=== PATIENT | male | born 1935 | race Caucasian/White ===

== ENCOUNTER 2017-11-08 13:31 | Inpatient (IN) | payer OTHER ==
[2017-11-08] MEDS ORDERED: SODIUM CHLORIDE 1,000 ML IV STA (14:40)
--- NOTE | 2017-11-08 14:49 | PDOC ---
History of Present Illness - General History Source: Patient, Family Exam Limitations: No Limitations <Ramsey Rothman - Last Filed: 11/08/17 17:37> - General History Source: Patient, Family Exam Limitations: No Limitations - History of Present Illness Initial Comments: 11/08/17 15:27 The patient is an 82 year old male with a significant past medical history of hypertension, inguinal hernia, chronic back pain, anxiety, hyperlipidemia, and depression who presents to the emergency for evaluation of a 2 day history of nausea and vomiting. The patient reports persistent episodes of nausea, vomiting , constipation, and lack of appetite. He reports intermittent episodes of abdominal discomfort. Of note, the patient reports being recently diagnosed for a urinary tract infection and finished course of amoxicillin one week ago. The patient denies chest pain, shortness of breath, headache, and dizziness. Denies fevers, chills, diarrhea, and changes to urination. Allergies: NKDA Past surgical history: Inguinal hernia, Cholecystectomy Social history: Former smoker 2002. No reported alcohol or drug use. PCP: Dr. Feldman [phone]) <Ashley Hoang - Last Filed: 11/08/17 18:23> - General Chief Complaint: Nausea/Vomiting Stated Complaint: VOMITING Time Seen by Provider: 11/08/17 13:41 Past History - Past Medical History COPD: No HTN: Yes Hypercholesterolemia: Yes Psychiatric Problems: Yes (DEPRESSION) Other medical history: INGUINAL HERNIA - Surgical History Cholecystectomy: Yes - Suicide/Smoking/Psychosocial Hx Smoking History: Former smoker Have you smoked in the past 12 months: No If you are a former smoker, when did you quit?: 2002 Information on smoking cessation initiated: No Hx Alcohol Use: No Drug/Substance Use Hx: No Substance Use Type: None <Ramsey Rothman - Last Filed: 11/08/17 17:37> <Ashley Hoang - Last Filed: 11/08/17 18:23> - Past Medical History Allergies/Adverse Reactions: Allergies Allergy/AdvReac Type Severity Reaction Status Date / Time No Known Allergies Allergy Unverified 11/08/17 14:37 Home Medications: Ambulatory Orders Amlodipine Besylate [Norvasc -] 10 mg PO DAILY 11/08/17 Aspirin [Aspirin EC] 81 mg PO DAILY 11/08/17 Citalopram Hydrobromide [Celexa -] 20 mg PO DAILY 11/08/17 Labetalol HCl [Normodyne -] 300 mg PO BID 11/08/17 Simvastatin [Zocor -] 40 mg PO DAILY 11/08/17 Review of Systems - Review of Systems Able to Perform ROS?: Yes Comments:: GENERAL/CONSTITUTIONAL: No fever or chills. No weakness. HEAD, EYES, EARS, NOSE AND THROAT: No change in vision. No ear pain or discharge. No sore throat. CARDIOVASCULAR: No chest pain or shortness of breath. RESPIRATORY: No cough, wheezing, or hemoptysis. GASTROINTESTINAL: (+)Nausea. (+)Vomiting. (+)Constipation. GENITOURINARY: No dysuria, frequency, or change in urination. MUSCULOSKELETAL: (+)Abdominal discomfort. No joint or muscle swelling. No neck or back pain. SKIN: No rash NEUROLOGIC: No headache, vertigo, loss of consciousness, or change in strength/ sensation. ENDOCRINE: No increased thirst. No abnormal weight change. HEMATOLOGIC/LYMPHATIC: No anemia, easy bleeding, or history of blood clots. ALLERGIC/IMMUNOLOGIC: No hives or skin allergy. <Ashley Hoang - Last Filed: 11/08/17 18:23> *Physical Exam - Vital Signs Last Vital Signs Temp Pulse Resp BP Pulse Ox 98.6 F 84 20 146/71 96 11/08/17 13:32 11/08/17 13:32 11/08/17 13:32 11/08/17 13:32 11/08/17 13:32 <Ramsey Rothman - Last Filed: 11/08/17 17:37> - Vital Signs Last Vital Signs Temp Pulse Resp BP Pulse Ox 98.6 F 84 20 146/71 11/08/17 13:32 11/08/17 13:32 11/08/17 13:32 11/08/17 13:32 11/08/17 13:32 - Physical Exam Comments: GENERAL: (+)Obese. Awake, alert, and fully oriented, in no acute distress HEAD: No signs of trauma EYES: PERRLA, EOMI, sclera anicteric, conjunctiva clear ENT: Auricles normal inspection, hearing grossly normal, nares patent, Moist mucosa NECK: Normal ROM, supple, no JVD, or masses LUNGS: Breath sounds equal, clear to auscultation bilaterally. No wheezes, and no crackles HEART: Regular rate and rhythm, normal S1 and S2, no murmurs, rubs or gallops ABDOMEN: Soft, nontender. No guarding, no rebound. No masses MUSCULOSKELETAL: (+)Large inguinal hernia on left. No testicular tenderness. EXTREMITIES: Normal range of motion, no edema. No clubbing or cyanosis. No cords, erythema, or tenderness NEUROLOGICAL: Cranial nerves II through XII grossly intact. Normal speech, normal gait SKIN: Warm, Dry, normal turgor, no rashes or lesions noted. <Ashley Hoang - Last Filed: 11/08/17 18:23> ED Treatment Course - LABORATORY CBC & Chemistry Diagram: 11/08/17 14:30 11/08/17 14:30 - RADIOLOGY Radiology Studies Ordered: Category Date Time Status ABDOMEN & PELVIS CT WITH CONTR [CT] Stat CT Scan 11/08/17 14:44 Ordered CHEST X-RAY PORTABLE* [RAD] Stat Radiology 11/08/17 13:56 Taken <Ramsey Rothman - Last Filed: 11/08/17 17:37> - LABORATORY CBC & Chemistry Diagram: 11/08/17 14:30 11/08/17 14:30 - ADDITIONAL ORDERS Additional order review: Laboratory Results 11/08/17 11/08/17 14:30 14:07 Sodium 128 L Potassium 5.2 H Chloride 93 L Carbon Dioxide 23 Anion Gap 12 BUN 33 H Creatinine 1.1 Creat Clearance w eGFR > 60 Random Glucose 142 H Calcium 8.4 Total Bilirubin 0.9 AST 33 ALT 29 Alkaline Phosphatase 129 H Total Protein 6.9 Albumin 3.0 L Urine Color Yellow Urine Appearance Clear Urine pH 5.0 Ur Specific [place] >= 1.030 H Urine Protein Trace Urine Glucose (UA) Negative Urine Ketones 2+ H Urine Blood 1+ H Urine Nitrite Negative Urine Bilirubin 2+ H Urine Urobilinogen 0.2 Ur Leukocyte Esterase Negative 11/08/17 14:30 RBC 4.27 MCV 78.9 L MCHC 32.9 RDW 15.3 MPV 7.8 Neutrophils % No Result Required. Lymphocytes % No Result Required. - Medications Given in the ED: ED Medications Discontinued Medications Generic Name Dose Route Start Last Admin Trade Name Freq PRN Reason Stop Dose Admin Lorazepam 1 mg 11/08/17 14:40 11/08/17 15:18 Ativan Injection - IVPUSH 05/07/18 14:41 1 mg ONCE ONE Administration <Ashley Hoang - Last Filed: 11/08/17 18:23> Medical Decision Making - Medical Decision Making 11/08/17 14:49 A portion of this note was documented by scribe services under my direction. I have reviewed the details of the note, within reason, and agree with the documentation with the following case summary and management plan written by me. Patient treated in the ED. Nursing notes are reviewed and incorporated into the medical decision-making. Vital signs reviewed. Peripheral IV access obtained by the nurse, laboratory studies are drawn and sent, reviewed and interpreted by myself. Vital Signs Temp Pulse Resp BP Pulse Ox 98.6 F 84 20 146/71 96 11/08/17 13:32 11/08/17 13:32 11/08/17 13:32 11/08/17 13:32 11/08/17 13:32 82-year-old male with past medical history of hypertension, hyperlipidemia, anxiety and depression, left inguinal hernia presents with nausea and vomiting. Several weeks ago, the patient was recently diagnosed with a urinary tract infection and was placed on 2 prescriptions including most recently amoxicillin that was completed one week ago. The last several days, the patient has been having persistent nausea and vomiting and decreased appetite. Has had intermittent abdominal discomfort but no diarrhea. The patient does report having constipation and unclear when last bowel movement. However, the patient does take narcotics for his chronic back pain. Patient denies fevers or chills. Denies chest pain or shortness of breath. Differential includes gastroenteritis, constipation, bowel obstruction, hernia, urinary tract infection, acute coronary syndrome. We'll obtain labs, chest x-ray , urinalysis and a CAT scan the abdomen pelvis and reassess. 11/08/17 17:32 CBC, BMP 11/08/17 14:30 11/08/17 14:30 CMP Sodium 128 mmol/L (136-145) L 11/08/17 14:30 Potassium 5.2 mmol/L (3.5-5.1) H 11/08/17 14:30 Chloride 93 mmol/L (98-107) L 11/08/17 14:30 Carbon Dioxide 23 mmol/L (22-28) 11/08/17 14:30 Anion Gap 12 (8-16) 11/08/17 14:30 BUN 33 mg/dl (7-18) H 11/08/17 14:30 Creatinine 1.1 mg/dl (0.6-1.3) 11/08/17 14:30 Creat Clearance w eGFR > 60 (>60) 11/08/17 14:30 Random Glucose 142 mg/dl (74-106) H 11/08/17 14:30 Calcium 8.4 mg/dl (8.4-10.2) 11/08/17 14:30 Total Bilirubin 0.9 mg/dl (0.2-1.0) 11/08/17 14:30 AST 33 U/L (10-42) 11/08/17 14:30 ALT 29 U/L (10-40) 11/08/17 14:30 Alkaline Phosphatase 129 U/L (32-92) H 11/08/17 14:30 Troponin I < 0.03 ng/ml (0.00-0.06) 11/08/17 14:30 Total Protein 6.9 g/dl (6.4-8.3) 11/08/17 14:30 Albumin 3.0 g/dl (3.5-5.0) L 11/08/17 14:30 Lipase 53 U/L (73-393) L 11/08/17 14:30 Urine Test Results Urine Color Yellow 11/08/17 14:07 Urine Appearance Clear 11/08/17 14:07 Urine pH 5.0 (4.5-8) 11/08/17 14:07 Ur Specific [place] >= 1.030 (1.005-1.025) H 11/08/17 14:07 Urine Protein Trace (NEGATIVE) 11/08/17 14:07 Urine Glucose (UA) Negative (NEGATIVE) 11/08/17 14:07 Urine Ketones 2+ (NEGATIVE) H 11/08/17 14:07 Urine Blood 1+ (NEGATIVE) H 11/08/17 14:07 Urine Nitrite Negative (NEGATIVE) 11/08/17 14:07 Urine Bilirubin 2+ (NEGATIVE) H 11/08/17 14:07 Ur Leukocyte Esterase Negative (NEGATIVE) 11/08/17 14:07 Urine RBC 8-10 /hpf (0-3) 11/08/17 14:07 Urine WBC 0-3 (0-2) 11/08/17 14:07 Ur Epithelial Cells Rare /HPF 11/08/17 14:07 Urine Bacteria Rare /hpf (NEGATIVE) 11/08/17 14:07 11/08/17 17:37 CAT scan demonstrates high grade small bowel obstruction with abrupt transition point and a large right inguinal hernia. There is also very large left inguinal hernia. There is also hepatic mass lesions concerning for metastasis. There is also enlarged portacaval and pancreatic lymph nodes concerning for malignancy. Small right pleural effusion. I had given these results to the patient and the patient's . I also instructed him that I am concerned for cancer for this patient. The patient will need a malignancy workup. Given these symptoms and concerns, I had placed the patient for surgeon Dr. Jez De La Paz. Bands were noted to be 11%. Blood cultures and lactic acid was ordered and empiric antibiotics vancomycin and Zosyn were ordered. In the complexity of the patient' s case, decision was made to admit the patient to [facility]. The patient's family is agreeable to the plan. This is discussed with [facility] hospitalist who accepts the patient to medical surgical admission. Case discussed in detail with admitting physician including history, physical exam and ancillary studies. Admitting physician has assumed care for the patient, will follow all pending diagnostics and will complete the evaluation and treatment. <Ramsey Rothman - Last Filed: 11/08/17 17:37> - Medical Decision Making Case discussed with Dr. De La Paz at 18:23. <Ashley Hoang - Last Filed: 11/08/17 18:23> *DC/Admit/Observation/Transfer - Discharge Dispostion Admit: Yes <Ramsey Rothman - Last Filed: 11/08/17 17:37> - Attestations Scribe Attestion: Documentation prepared by Ashley Hoang, acting as medical lead for Ramsey Rohtman MD. <Ashley Hoang - Last Filed: 11/08/17 18:23> Diagnosis at time of Disposition: Liver mass Bowel obstruction Qualifiers: Intestinal obstruction type: unspecified Intestinal obstruction extent: complete Qualified Code(s): K56.601 - Complete intestinal obstruction, unspecified as to cause - Discharge Dispostion Condition at time of disposition: Guarded - Referrals Referrals: Vinicius Feldman MD [Primary Care Provider] - - Patient Instructions - Post Discharge Activity
[2017-11-08 15:06] LABS: URINE APPEARANCE Clear; URINE BILIRUBIN 2+ (NEGATIVE); URINE GLUCOSE (UA) Negative (NEGATIVE); URINE KETONE 2+ (NEGATIVE); URINE LEUK ESTERASE Negative (NEGATIVE); URINE NITRITE Negative (NEGATIVE); URINE PROTEIN Trace (NEGATIVE); URINE UROBILINOGEN 0.2 (0.2-1.0)
[2017-11-08 15:07] LABS: URINE COLOR YELLOW
[2017-11-08 15:08] LABS: HEMATOCRIT 33.7 % (35.4-49); HEMOGLOBIN 11.1 GM/dl (11.7-16.9); MCHC 32.9 g/dl (32.0-35.9); MEAN CELL VOLUME 78.9 fl (80-96); MEAN PLT VOLUME 7.8 fl (7.5-11.1); PLATELET COUNT 359 K/MM3 (134-434); RBC 4.27 M/mm3 (4.00-5.60); RDW 15.3 % (11.9-15.9); WHITE BLOOD COUNT 12.2 K/mm3 (4.0-10.8)
[2017-11-08] MEDS ORDERED: LORazepam 2 MG/ML SDV VIAL ONE (15:14)
[2017-11-08 15:21] LABS: ALK PHOS 129 U/L (32-92); ANION GAP 12 (8-16); BILIRUBIN,TOTAL 0.9 mg/dl (0.2-1.0); BLOOD UREA NITROGEN 33 mg/dl (7-18); CALCIUM 8.4 mg/dl (8.4-10.2); CHLORIDE 93 mmol/L (98-107); CO2 23 mmol/L (22-28); CREATININE 1.1 mg/dl (0.6-1.3); GLUCOSE,RANDOM 142 mg/dl (74-106); POTASSIUM 5.2 mmol/L (3.5-5.1); SGOT/AST 33 U/L (10-42); SGPT/ALT 29 U/L (10-40); SODIUM 128 mmol/L (136-145); TOT PROT 6.9 g/dl (6.4-8.3)
[2017-11-08 15:33] LABS: ACTIVATED PTT 24.2 SECONDS (24.0-38.9)
[2017-11-08 15:37] LABS: INR 1.19 (0.82-1.09); PROTHROMBIN TIME (PATIENT) 13.3 SEC (10.2-13.0)
[2017-11-08 15:38] LABS: EPI CELLS RARE /HPF; URINE BACTERIA RARE /hpf (NEGATIVE); URINE WBC 0-3 (0-2)
[2017-11-08] MEDS ORDERED: morphine CARPU-JECT 4 MG/1 ML DISP.SYRIN IVPUSH ONE (17:04)
[2017-11-08 17:17] LABS: PLATELET ESTIMATE ADEQUATE
[2017-11-08] MEDS ORDERED: morphine SULFATE 4 MG/ML VIAL ONE (17:21)
[2017-11-08] MEDS ORDERED: PIPERACILLIN/TAZOB 3.375 GM 3.375 GM in DEXTROSE 5%-WATER - 50 ML IVPB ONE (17:31)
[2017-11-08] MEDS ORDERED: VANCOMYCIN 1,000 MG in DEXTROSE 5%-WATER - 250 ML IVPB ONE (17:31)
[2017-11-08] MEDS ORDERED: PIPERACILLIN/TAZOBACTAM 3.375 GM VIAL IVPB ONE (18:09)
[2017-11-08] MEDS ORDERED: VANCOMYCIN 1,000 MG VIAL (RESTRICTED TO ID ONLY) ONE (18:09)
--- NOTE | 2017-11-08 20:10 | PN ---
Teaching Attending Note Name of Resident: Francisco Mills ATTENDING PHYSICIAN STATEMENT I saw and evaluated the patient. I reviewed the resident's note and discussed the case with the resident. I agree with the resident's findings and plan as documented. SUBJECTIVE: 82 M ([place]) with pmhx. of htn, inguinal hernia, chronic back pain, anxiety , hld, and depression who presents with nausea and vomiting. States this has been present for two days, but he did note last BM(solid) yesterday and continued to have flatus today. States vomiting has completely subsided, and currently denies any nausea. No fevers or chills. No chest pain or pressure. No urinary frequency or urgency. States he recently had a UTI and finished abx 1 weeks ago (Amoxicilin). States he has had a large inguinal hernia for several years. Denies any pain. OBJECTIVE: Physical: VS: Vital Signs Period Temp Pulse Resp BP Sys/Noble Pulse Ox Last 24 Hr 98.6 F-98.9 F 84-88 20-22 124-146/55-78 93-96 GEN: NAD, Resting in bed, AAOX3 HEENT: NCAT, PERRL, Throat without erythema or exudates CARD: RRR III/ NU S1, S2 RESP: Mild crackles bases ABD: BSx4, Distended, NTD to palpation EXT: Large Left Inguinal hernia non-reducible CBCD WBC 12.2 K/mm3 (4.0-10.8) H 11/08/17 14:30 RBC 4.27 M/mm3 (4.00-5.60) 11/08/17 14:30 Hgb 11.1 GM/dl (11.7-16.9) L 11/08/17 14:30 Hct 33.7 % (35.4-49) L 11/08/17 14:30 MCV 78.9 fl (80-96) L 11/08/17 14:30 MCHC 32.9 g/dl (32.0-35.9) 11/08/17 14:30 RDW 15.3 % (11.9-15.9) 11/08/17 14:30 Plt Count 359 K/MM3 (134-434) 11/08/17 14:30 MPV 7.8 fl (7.5-11.1) 11/08/17 14:30 CMP Sodium 128 mmol/L (136-145) L 11/08/17 14:30 Potassium 5.2 mmol/L (3.5-5.1) H 11/08/17 14:30 Chloride 93 mmol/L (98-107) L 11/08/17 14:30 Carbon Dioxide 23 mmol/L (22-28) 11/08/17 14:30 Anion Gap 12 (8-16) 11/08/17 14:30 BUN 33 mg/dl (7-18) H 11/08/17 14:30 Creatinine 1.1 mg/dl (0.6-1.3) 11/08/17 14:30 Creat Clearance w eGFR > 60 (>60) 11/08/17 14:30 Random Glucose 142 mg/dl (74-106) H 11/08/17 14:30 Calcium 8.4 mg/dl (8.4-10.2) 11/08/17 14:30 Total Bilirubin 0.9 mg/dl (0.2-1.0) 11/08/17 14:30 AST 33 U/L (10-42) 11/08/17 14:30 ALT 29 U/L (10-40) 11/08/17 14:30 Alkaline Phosphatase 129 U/L (32-92) H 11/08/17 14:30 Total Protein 6.9 g/dl (6.4-8.3) 11/08/17 14:30 Albumin 3.0 g/dl (3.5-5.0) L 11/08/17 14:30 CARDIAC ENZYMES Troponin I < 0.03 ng/ml (0.00-0.06) 11/08/17 14:30 CT ABD/PELVIS: High grade SBO, abrupt transition point in Right inguinal hernia , collapsed distal Small Bowel and colon. LARGE LEFT Inguinal Hernia containing nearly entire descending and sigmoid colon, with NO evidence of obstruction. Indet. Multiple hepatic masses ? Mets. MRI/CT Liver. Enlarged Portocaval and peripancreatic lymph nodes, opacity post. lung bases. Enlarged prostate, Home Medications Medication Instructions Recorded Amlodipine Besylate [Norvasc -] 10 mg PO DAILY 11/08/17 Aspirin [Aspirin EC] 81 mg PO DAILY 11/08/17 Citalopram Hydrobromide [Celexa -] 20 mg PO DAILY 11/08/17 Labetalol HCl [Normodyne -] 300 mg PO BID 11/08/17 Oxycodone HCl/Acetaminophen 1 tab PO Q6H 11/08/17 [Percocet 5-325 mg Tablet] Simvastatin [Zocor -] 40 mg PO DAILY 11/08/17 ASSESSMENT AND PLAN: 82 M with pmhx. of htn, inguinal hernia, chronic back pain, anxiety, hld, and depression who presents with nausea and vomiting, found to have SBO and hepatic masses 1.) SBO/Inguinal Hernia - NGT- Refusing at this time as pt. wants to sleep. - NPO - Sx. Consult placed, Spoken with ED - Serial Abd. Exams - Coags, Type & Screen 2.) Hepatic Masses/Lymphadenopathy - Oncology Eval - Needs CT Chest/MRI Liver 3.) Hyponatremia - Serum/Urine OSm - Recheck 4.) Hyperkalemia - Mild - Trend 5.) Microcytic Anemia - Fe Studies 6.) Systolic Ejection Murmur - Echo 7.) DVT - SCDS Place in Med-Sx
[2017-11-08] MEDS ORDERED: ACETAMINOPHEN 325 MG TABLET (FP) PO PRN (21:48)
[2017-11-08] MEDS ORDERED: SODIUM CHLORIDE 1,000 ML IV SCH (22:00)
--- NOTE | 2017-11-08 22:09 | HP ---
CHIEF COMPLAINT: abdominal pain, n/v PCP: Dr. Feldman ([phone]) FAMILY NUMBERS: HOME: [phone] CELL: [phone] (son, Elliott) HISTORY OF PRESENT ILLNESS: 82 year old male with a history of HTN, osteoarthritis, hx of hepatitis, bilateral inguinal hernias and cholecystectomy in 1999 presents to the hospital with 3 day hx of n/v/abdominal pain. Patient states that he was treated for UTI/ hematuria a week ago with amoxicillin. He reports that after he finished taking the course of antibiotic, he began having multiple episodes of non-bloody emesis. Patient's family reports that the vomitus appeared green and bilious at times. He has been unable to take anything by mouth. Patient states that he is passing gas, but his last bowel movement was yesterday and was solid/hard. Patient states that his He denies current abdominal pain, chest pain, shortness of breath, fevers, chills. ER course was notable for: (1) hyponatremia (128) (2) hyperkalemia (5.2) (3) WBC 12.2 PAST MEDICAL HISTORY: HTN. arthritis, hepatitis, b/l inguinal hernias PAST SURGICAL HISTORY: cholecystectomy 1999 Social History: Smoking: none Alcohol: none Drugs: none Allergies No Known Allergies Allergy (Unverified 11/08/17 14:37) HOME MEDICATIONS: Home Medications Medication Instructions Recorded Amlodipine Besylate [Norvasc -] 10 mg PO DAILY 11/08/17 Aspirin [Aspirin EC] 81 mg PO DAILY 11/08/17 Citalopram Hydrobromide [Celexa -] 20 mg PO DAILY 11/08/17 Labetalol HCl [Normodyne -] 300 mg PO BID 11/08/17 Oxycodone HCl/Acetaminophen 1 tab PO Q6H 11/08/17 [Percocet 5-325 mg Tablet] Simvastatin [Zocor -] 40 mg PO DAILY 11/08/17 REVIEW OF SYSTEMS CONSTITUTIONAL: Absent: fever, chills, diaphoresis, generalized weakness, malaise, loss of appetite, weight change HEENT: Absent: rhinorrhea, nasal congestion, throat pain, throat swelling, difficulty swallowing, mouth swelling, ear pain, eye pain, visual changes CARDIOVASCULAR: Absent: chest pain, syncope, palpitations, irregular heart rate, lightheadedness , peripheral edema RESPIRATORY: Absent: cough, shortness of breath, dyspnea with exertion, orthopnea, wheezing, stridor, hemoptysis GASTROINTESTINAL: nausea, vomiting Absent: abdominal pain, abdominal distension, diarrhea, constipation, melena, hematochezia GENITOURINARY: Absent: dysuria, frequency, urgency, hesitancy, hematuria, flank pain, genital pain MUSCULOSKELETAL: Absent: myalgia, arthralgia, joint swelling, back pain, neck pain SKIN: Absent: rash, itching, pallor HEMATOLOGIC/IMMUNOLOGIC: Absent: easy bleeding, easy bruising, lymphadenopathy, frequent infections ENDOCRINE: Absent: unexplained weight gain, unexplained weight loss, heat intolerance, cold intolerance NEUROLOGIC: Absent: headache, focal weakness or paresthesias, dizziness, unsteady gait, seizure, mental status changes, bladder or bowel incontinence PSYCHIATRIC: Absent: anxiety, depression, suicidal or homicidal ideation, hallucinations. PHYSICAL EXAMINATION Vital Signs - 24 hr 11/08/17 11/08/17 11/08/17 13:32 16:15 18:00 Temperature 98.6 F 98.9 F Pulse Rate 84 85 Pulse Rate [ 88 Right Radial] Respiratory 20 22 Rate Blood Pressure 146/71 Blood Pressure 138/78 [Left Arm] O2 Sat by Pulse 96 95 95 Oximetry (%) 11/08/17 11/08/17 11/08/17 18:50 19:00 20:01 Temperature 98.8 F 98.8 F Pulse Rate 85 85 Pulse Rate [ Right Radial] Respiratory 22 22 Rate Blood Pressure 124/55 124/55 Blood Pressure [Left Arm] O2 Sat by Pulse 93 L Oximetry (%) GENERAL: Awake, alert, and fully oriented, in no acute distress. HEENT: PERRLA, EOMI, dry mucus membranes NECK: No JVD LUNGS: CTA, no wheezes HEART: Regular rate and rhythm, normal S1 and S2, harsh systolic murmur appreciated on exam ABDOMEN: Soft, nontender, not distended, normoactive bowel sounds, no guarding, no rebound, no masses. No hepatomegaly or splenomegaly. MUSCULOSKELETAL: Normal range of motion at all joints. No bony deformities or tenderness. No CVA tenderness. EXTREMITIES: 2+ pulses, No peripheral edema. NEUROLOGICAL: Cranial nerves II-XII intact. Normal speech PSYCHIATRIC: Cooperative. Good eye contact. Appropriate mood and affect. SKIN: Warm, dry, normal turgor, no rashes or lesions noted, normal capillary refill. Laboratory Results - last 24 hr 11/08/17 11/08/17 11/08/17 14:07 14:30 14:30 WBC 12.2 H RBC 4.27 Hgb 11.1 L Hct 33.7 L MCV 78.9 L MCH 26.0 MCHC 32.9 RDW 15.3 Plt Count 359 MPV 7.8 Neutrophils % No Result Required. Neutrophils % (Manual) 85.0 H Band Neutrophils % 11.0 H Lymphocytes % No Result Required. Lymphocytes % (Manual) 2.0 L Monocytes % (Manual) 2 L Platelet Estimate Adequate PT with INR 13.3 H INR 1.19 PTT (Actin FS) 24.2 L Sodium Potassium Chloride Carbon Dioxide Anion Gap BUN Creatinine Creat Clearance w eGFR Random Glucose Lactic Acid Calcium Total Bilirubin AST ALT Alkaline Phosphatase Troponin I Total Protein Albumin Lipase Urine Color Yellow Urine Appearance Clear Urine pH 5.0 Ur Specific [place] >= 1.030 H Urine Protein Trace Urine Glucose (UA) Negative Urine Ketones 2+ H Urine Blood 1+ H Urine Nitrite Negative Urine Bilirubin 2+ H Urine Urobilinogen 0.2 Ur Leukocyte Esterase Negative Urine RBC 8-10 Urine WBC 0-3 Ur Epithelial Cells Rare Urine Bacteria Rare 11/08/17 11/08/17 11/08/17 14:30 14:30 14:30 WBC RBC Hgb Hct MCV MCH MCHC RDW Plt Count MPV Neutrophils % Neutrophils % (Manual) Band Neutrophils % Lymphocytes % Lymphocytes % (Manual) Monocytes % (Manual) Platelet Estimate PT with INR INR PTT (Actin FS) Sodium 128 L Potassium 5.2 H Chloride 93 L Carbon Dioxide 23 Anion Gap 12 BUN 33 H Creatinine 1.1 Creat Clearance w eGFR > 60 Random Glucose 142 H Lactic Acid Calcium 8.4 Total Bilirubin 0.9 AST 33 ALT 29 Alkaline Phosphatase 129 H Troponin I < 0.03 Total Protein 6.9 Albumin 3.0 L Lipase 53 L Urine Color Urine Appearance Urine pH Ur Specific [place] Urine Protein Urine Glucose (UA) Urine Ketones Urine Blood Urine Nitrite Urine Bilirubin Urine Urobilinogen Ur Leukocyte Esterase Urine RBC Urine WBC Ur Epithelial Cells Urine Bacteria 11/08/17 17:51 WBC RBC Hgb Hct MCV MCH MCHC RDW Plt Count MPV Neutrophils % Neutrophils % (Manual) Band Neutrophils % Lymphocytes % Lymphocytes % (Manual) Monocytes % (Manual) Platelet Estimate PT with INR INR PTT (Actin FS) Sodium Potassium Chloride Carbon Dioxide Anion Gap BUN Creatinine Creat Clearance w eGFR Random Glucose Lactic Acid 1.1 Calcium Total Bilirubin AST ALT Alkaline Phosphatase Troponin I Total Protein Albumin Lipase Urine Color Urine Appearance Urine pH Ur Specific [place] Urine Protein Urine Glucose (UA) Urine Ketones Urine Blood Urine Nitrite Urine Bilirubin Urine Urobilinogen Ur Leukocyte Esterase Urine RBC Urine WBC Ur Epithelial Cells Urine Bacteria IMAGING: CT Abd/Pelvis (11/08): 1. High-grade small bowel obstruction is presumably complete, with abrupt transition point in a large RIGHT inguinal hernia. Collapsed distal small bowel and colon. 2. Very large LEFT inguinal hernia containing nearly the entire descending and sigmoid colon with no evidence of obstruction. 3. Multiple indeterminant hepatic mass lesions, concerning for metastasis. Please correlate with medical history. Complete characterization requires multiphase contrast-enhanced MRI or CT of the liver. 4. Enlarged portacaval and peripancreatic lymph nodes are also concerning for malignancy. 5. Small layering right pleural effusion. Opacity in the posterior right lung base may be atelectasis and/or pneumonia. 6. Cardiomegaly, at least moderate coronary artery calcific atherosclerosis and aortic valve calcification. Please correlate clinically for aortic stenosis. 7. Enlarged prostate gland. Please correlate with PSA and physical exam. ASSESSMENT/PLAN: 82 year old male hx HTN and large bilateral hernias presented to the hospital with n/v and abdominal pain and found to have total small bowel obstruction within right inguinal hernia #Complete Small Bowel Obstruction: patient is clinically improving with no overt abdominal pain and decreased frequency of vomiting -NPO except meds -IVF w/ NS @ 100cc/hr -surgery consult Dr. De La Paz Appreciated -coags, type and screen -repeat labs in AM -lactate normal -NGT offered, but family decided to wait until the morning to check for improvement #Harsh Systolic Ejection Murmur: patient had just seen a hip hop dancer the prior day and an echo was ordered by never performed -cards consult Dr. Baldwin appreciated -echo ordered -EKG: NSR w/ RBBB, QTc prolonged at 503, avoid QTC prolonging agents #Hyponatremia: patient's sodium 128 -IVF NS @ 100cc/hr -repeat labs now and in AM #Hyperkalemia: 5.2 -monitor potassium in AM #Liver Lesions: could be related to metastatic process -oncology consultation appreciated -consider multi-phsae contrast MRI as per recommendations from radiology #Anemia: could be chronic vs related to obstruction -Hgb 11.1 #FEN -NS @ 100cc/hr -NPO except meds/some ice chips -replete lytes in AM as necessary #Prophylaxis -heparin 5000 subq TID #Disposition -Monitor on med surg -family wants to make decisions together for patient, phone numbers listed on top of note -full code for now Visit type - Emergency Visit Emergency Visit: No - New Patient This patient is new to me today: Yes Date on this admission: 11/08/17 - Critical Care Critical Care patient: No Hospitalist Screening - Colonoscopy Questionnaire Colonoscopy Questionnaire: Colonoscopy Questionnaire - Patient: 50 - 75 years old and never had a screening colonoscopy: No History of colon or rectal polyps, or CA: No History of IBD, Crohn's disease or UC: No History of abdominal radiation therapy as a child: No - Relative: 1 with colon or rectal CA, or polyps at age 60 or younger: Unknown Colon or rectal CA diagnosed at age 45 or younger: Unknown Multiple relatives with colon or rectal CA: Unknown - Outcome: Screening Result: Negative Screen
[2017-11-08 23:55] LABS: HEMATOCRIT 28.1 % (35.4-49); HEMOGLOBIN 9.3 GM/dL (11.7-16.9); MCH 26.3 pg (25.7-33.7); MCHC 33.2 g/dl (32.0-35.9); MEAN CELL VOLUME 79.2 fl (80-96); MEAN PLT VOLUME 7.8 fl (7.5-11.1); PLATELET COUNT 271 K/MM3 (134-434); RBC 3.55 M/mm3 (4.00-5.60); RDW 16.8 % (11.9-15.9)
[2017-11-08 23:56] VITALS: BMI 31.6
[2017-11-09] MEDS: HEPARIN NA (PORCINE) 5,000 UNITS/ML 1ML VIAL SQ SCH ×3 (00:16→22:24)
[2017-11-09 00:17] LABS: INR 1.16 (0.82-1.09); PROTHROMBIN TIME (PATIENT) 13.1 SEC (9.7-13.0)
[2017-11-09 00:28] LABS: ALBUMIN 2.5 g/dl (3.4-5.0); ANION GAP 14 (8-16); BILIRUBIN,TOTAL 0.8 mg/dL (0.2-1.0); BLOOD UREA NITROGEN 34 mg/dL (7-18); CALCIUM 7.5 mg/dL (8.5-10.1); CHLORIDE 101 mmol/L (98-107); CO2 23 mmol/L (21-32); CREATININE 1.1 mg/dL (0.7-1.3); GLUCOSE,RANDOM 108 mg/dL (74-106); MAGNESIUM 2.2 mg/dL (1.8-2.4); PHOSPHOROUS 4.2 mg/dL (2.5-4.9); POTASSIUM 4.1 mmol/L (3.5-5.1); SGOT/AST 49 U/L (15-37); SGPT/ALT 40 U/L (12-78); SODIUM 138 mmol/L (136-145)
[2017-11-09 00:29] LABS: ALK PHOS 131 U/L (45-117)
[2017-11-09 03:01] LABS: URINE APPEARANCE CLOUDY; URINE BILIRUBIN NEGATIVE (<2.0 mg/dL); URINE COLOR YELLOW; URINE GLUCOSE (UA) NEGATIVE (NEGATIVE); URINE KETONE 1+ (NEGATIVE); URINE LEUK ESTERASE NEGATIVE (NEGATIVE); URINE NITRITE NEGATIVE (NEGATIVE); URINE PROTEIN NEGATIVE (NEGATIVE); URINE UROBILINOGEN NEGATIVE mg/dL (0.2-1.0)
[2017-11-09 03:07] LABS: URINE MUCUS RARE
[2017-11-09 08:50] LABS: HEMATOCRIT 27.5 % (35.4-49); MCH 26.1 pg (25.7-33.7); MCHC 32.9 g/dl (32.0-35.9); MEAN CELL VOLUME 79.3 fl (80-96); MEAN PLT VOLUME 7.9 fl (7.5-11.1); PLATELET COUNT 240 K/MM3 (134-434); RBC 3.47 M/mm3 (4.00-5.60); RDW 16.8 % (11.9-15.9); WHITE BLOOD COUNT 8.4 K/mm3 (4.0-10.0)
[2017-11-09 09:12] LABS: ALBUMIN 2.3 g/dl (3.4-5.0); ANION GAP 9 (8-16); BLOOD UREA NITROGEN 32 mg/dL (7-18); CALCIUM 7.1 mg/dL (8.5-10.1); CHLORIDE 106 mmol/L (98-107); CO2 24 mmol/L (21-32); GLUCOSE,RANDOM 94 mg/dL (74-106); MAGNESIUM 2.2 mg/dL (1.8-2.4); POTASSIUM 4.2 mmol/L (3.5-5.1); SODIUM 139 mmol/L (136-145)
[2017-11-09 09:17] LABS: ALK PHOS 130 U/L (45-117); BILIRUBIN,TOTAL 0.7 mg/dL (0.2-1.0); CREATININE 0.9 mg/dL (0.7-1.3); PHOSPHOROUS 3.4 mg/dL (2.5-4.9); SGOT/AST 47 U/L (15-37); SGPT/ALT 42 U/L (12-78); TOT PROT 5.7 g/dl (6.4-8.2)
--- NOTE | 2017-11-09 09:30 | CONSULT ---
- Consultation REQUESTING PROVIDER: Pablo Rothman MD CONSULT REQUEST: We have been asked to surgically evaluate this patient for management of an incarcerated right inguinal hernia. PCP:Lucia Pitts HISTORY OF PRESENT ILLNESS: TRISH who is an 82 y/o male w/ a known Left IH who presented w/right groin pain and nausea and vomiting of sudden on set starting 24 hours ago w/associated obstipation; he went to the ER at [facility] and was xferred here for further care aftre initial evaluation; since xfer here he has been passing flatus and had liquid bowel movements; he still has some vague abdominal pain and gas; he has NOC. PMHx: HTN; HLD; PSHx: lap mario Home Medications Medication Instructions Recorded Amlodipine Besylate [Norvasc -] 10 mg PO DAILY 11/08/17 Aspirin [Aspirin EC] 81 mg PO DAILY 11/08/17 Citalopram Hydrobromide [Celexa -] 20 mg PO DAILY 11/08/17 Labetalol HCl [Normodyne -] 300 mg PO BID 11/08/17 Oxycodone HCl/Acetaminophen 1 tab PO Q6H 11/08/17 [Percocet 5-325 mg Tablet] Simvastatin [Zocor -] 40 mg PO DAILY 11/08/17 Allergies Allergy/AdvReac Type Severity Reaction Status Date / Time No Known Allergies Allergy Unverified 11/08/17 14:37 PHYSICAL EXAM: GENERAL: Awake, alert, and fully oriented, in no acute distress. HEAD: Normal with no signs of trauma. EYES: sclera anicteric, conjunctiva clear. NECK: Normal ROM, supple without lymphadenopathy, JVD, or masses. ABDOMEN: Soft, slight tenderness, minimally distended and tympanitic, sluggish bowel sounds, no guarding, no rebound, no masses. No organomegaly. Reducible right inguinal hernia; chronically incarcerated left inguinoscrotal hernia; testicle identified on the right difficult to ascertain on the left MUSCULOSKELETAL: Normal ROM at all joints. No bony deformities or tenderness. No CVA tenderness. UPPER EXTREMITIES: 2+ pulses, warm, well-perfused. No cyanosis. Cap refill <2 seconds. No peripheral edema. LOWER EXTREMITIES: 2+ pulses, warm, well-perfused. No calf tenderness. No peripheral edema. NEUROLOGICAL: Normal speech, gait not observed. PSYCH: Cooperative. Good eye contact. Appropriate mood and affect. SKIN: Warm, dry, normal turgor, no rashes or lesions noted. Vital Signs Temperature 99.2 F 11/09/17 05:00 Pulse Rate 88 11/09/17 05:00 Respiratory Rate 20 11/08/17 23:47 Blood Pressure 126/59 11/09/17 05:00 O2 Sat by Pulse Oximetry (%) 96 11/09/17 06:56 Lab Results WBC 8.4 K/mm3 (4.0-10.0) 11/09/17 07:45 RBC 3.47 M/mm3 (4.00-5.60) L 11/09/17 07:45 Hgb 9.0 GM/dL (11.7-16.9) L 11/09/17 07:45 Hct 27.5 % (35.4-49) L 11/09/17 07:45 MCV 79.3 fl (80-96) L 11/09/17 07:45 MCHC 32.9 g/dl (32.0-35.9) 11/09/17 07:45 RDW 16.8 % (11.9-15.9) H 11/09/17 07:45 Plt Count 240 K/MM3 (134-434) 11/09/17 07:45 Sodium 138 mmol/L (136-145) 11/08/17 23:40 Potassium 4.1 mmol/L (3.5-5.1) 11/08/17 23:40 Chloride 101 mmol/L (98-107) 11/08/17 23:40 Carbon Dioxide 23 mmol/L (21-32) 11/08/17 23:40 Anion Gap 14 (8-16) 11/08/17 23:40 BUN 34 mg/dL (7-18) H 11/08/17 23:40 Creatinine 1.1 mg/dL (0.7-1.3) 11/08/17 23:40 Random Glucose 108 mg/dL (74-106) H 11/08/17 23:40 Calcium 7.5 mg/dL (8.5-10.1) L 11/08/17 23:40 Blood Type A POSITIVE 11/08/17 23:40 Antibody Screen Negative 11/08/17 23:40 INR 1.16 (0.82-1.09) H 11/08/17 23:40 CT a/p reviewed-sbo due to incarcerated right inguinal hernia; known left chronically incarcerated left inguinal hernia IMP:sbo due to incarcerated right inguinal hernia; known left chronically incarcerated left inguinal hernia. PLAN: Advise repair of right inguinal hernia with possible mesh; possible small bowel resection ; left inguinal hernia is not amenable to repair due to loss of domain; r/b/t/a's d/w the patient who will give informed consent and d/w his as well; possible recurrence discussed as well; other CT scan findings may be addressed after surgery. Jez De La Paz MD FACS Visit type - Case Type Case Type: ED Admission - Emergency Emergency Visit: Yes ED Registration Date: 11/08/17 Care time: The patient presented to the Emergency Department on the above date and was hospitalized for further evaluation of their emergent condition. - New patient This patient is new to me today: Yes Date on this admission: 11/09/17 - Critical Care Critical Care patient: No
--- NOTE | 2017-11-09 09:56 | EKG ---
Test Reason : Blood Pressure : / mmHG Vent. Rate : 084 BPM Atrial Rate : 084 BPM P-R Int : 148 ms QRS Dur : 142 ms QT Int : 426 ms P-R-T Axes : 036 -19 026 degrees QTc Int : 503 ms NORMAL SINUS RHYTHM RIGHT BUNDLE BRANCH BLOCK MINIMAL VOLTAGE CRITERIA FOR LVH, MAY BE NORMAL VARIANT ABNORMAL ECG NO PREVIOUS ECGS AVAILABLE Confirmed by MD Win, Newton ([id number]) on 11/09/2017 9:56:07 AM Referred By: OZ Confirmed By:Newton Walden MD
[2017-11-09] MEDS ORDERED: CITALOPRAM HYDROBROMIDE 20 MG TABLET (FP) PO SCH (10:00)
[2017-11-09] MEDS ORDERED: DEXTROSE 5%-WATER - 1,000 ML IV SCH (11:00)
--- NOTE | 2017-11-09 12:41 | CON.CARD ---
Consult Consult Specialty:: Cardiology Referred by:: Hospitalist Reason for Consultation:: Cardiac clearance - History of Present Illness Chief Complaint: Abdominal pain History of Present Illness: Patient is an 82 year old male with underlying history of hypertension, hypercholesterolemia, osteoarthritis, hepatitis and bilateral inguinal hernia who presents with nausea, vomiting and abdominal pain. He was treated for UTI/ hematuria a week ago for which he was treated with antibiotics. Abdominal CT revealed high grade small bowel obstruction with right inguinal hernia. Surgery consultation was called and currently awaits OR. He denies chest pain, shortness of breath or palpitations. He denies paroxysmal nocturnal dyspnea or orthopnea. He denies fever or chills. He denies headache or lightheadedness. Cardiology consultation was called for cardiac clearance. Patient had seen a first aid attendant affiliated with [facility] in [place] - History Source History Provided By: Patient, Family Member, Medical Record Limitations to Obtaining History: No Limitations - Past Medical History Cardio/Vascular: Yes: HTN, Hyperlipdemia Musculoskeletal: Yes: Osteoarthritis Additional Medical History: left inguinal hernia - Past Surgical History Past Surgical History: Yes: Cholecystectomy - Alcohol/Substance Use Hx Alcohol Use: No - Smoking History Smoking history: Former smoker Have you smoked in the past 12 months: No If you are a former smoker, when did you quit?: 2002 Home Medications - Allergies Allergies/Adverse Reactions: Allergies Allergy/AdvReac Type Severity Reaction Status Date / Time No Known Allergies Allergy Unverified 11/08/17 14:37 - Home Medications Home Medications: Ambulatory Orders Amlodipine Besylate [Norvasc -] 10 mg PO DAILY 11/08/17 Aspirin [Aspirin EC] 81 mg PO DAILY 11/08/17 Citalopram Hydrobromide [Celexa -] 20 mg PO DAILY 11/08/17 Labetalol HCl [Normodyne -] 300 mg PO BID 11/08/17 Oxycodone HCl/Acetaminophen [Percocet 5-325 mg Tablet] 1 tab PO Q6H 11/08/17 Simvastatin [Zocor -] 40 mg PO DAILY 11/08/17 Family Disease History - Family Disease History Family History: Denies Review of Systems - Review of Systems Constitutional: denies: Chills, Fever Cardiovascular: denies: Chest Pain, Palpitations, Shortness of Breath Respiratory: denies: Cough, Hemoptysis, Orthopnea, PND, SOB, SOB on Exertion Gastrointestinal: reports: Abdominal Pain, Nausea, Vomiting. denies: Constipation, Diarrhea, Melena, Rectal Bleeding, Vomiting Blood Genitourinary: denies: Dysuria, Hematuria Musculoskeletal: reports: Joint Pain Neurological: denies: Dizziness, Headache, Seizure, Syncope Vital Signs: Vital Signs Temperature 99.2 F 11/09/17 05:00 Pulse Rate 96 H 11/09/17 09:00 Respiratory Rate 20 11/09/17 09:00 Blood Pressure 132/59 11/09/17 09:00 O2 Sat by Pulse Oximetry (%) 96 11/09/17 06:56 Eyes: Yes: PERRL HENT: Yes: Atraumatic Neck: Yes: Supple Respiratory: Yes: CTA Bilaterally Gastrointestinal: Yes: Soft, Hypoactive Bowel Sounds, Tenderness Cardiovascular: Yes: Regular Rate and Rhythm JVD: No Carotid Bruit: No PMI: Non-Displaced Heart Sounds: Yes: S1, S2. No: Gallop Edema: No - Other Data Labs, Other Data: CBC, BMP 11/09/17 07:45 11/09/17 07:45 INR, PTT INR 1.16 (0.82-1.09) H 11/08/17 23:40 Troponin, BNP 11/08/17 14:30 Troponin I < 0.03 Laboratory Results - last 24 hr 11/08/17 11/08/17 11/08/17 14:07 14:30 14:30 WBC 12.2 H RBC 4.27 Hgb 11.1 L Hct 33.7 L MCV 78.9 L MCH 26.0 MCHC 32.9 RDW 15.3 Plt Count 359 MPV 7.8 Neutrophils % No Result Required. Neutrophils % (Manual) 85.0 H Band Neutrophils % 11.0 H Lymphocytes % No Result Required. Lymphocytes % (Manual) 2.0 L Monocytes % (Manual) 2 L Platelet Estimate Adequate PT with INR 13.3 H INR 1.19 PTT (Actin FS) 24.2 L Sodium Potassium Chloride Carbon Dioxide Anion Gap BUN Creatinine Creat Clearance w eGFR Random Glucose Lactic Acid Calcium Phosphorus Magnesium Total Bilirubin AST ALT Alkaline Phosphatase Troponin I Total Protein Albumin Lipase Urine Color Yellow Urine Appearance Clear Urine pH 5.0 Ur Specific [place] >= 1.030 H Urine Protein Trace Urine Glucose (UA) Negative Urine Ketones 2+ H Urine Blood 1+ H Urine Nitrite Negative Urine Bilirubin 2+ H Urine Urobilinogen 0.2 Ur Leukocyte Esterase Negative Urine WBC (Auto) Urine RBC (Auto) Urine RBC 8-10 Urine WBC 0-3 Ur Epithelial Cells Rare Urine Bacteria Rare Urine Mucus Ur Random Sodium Ur Random Potassium Ur Random Chloride Blood Type Antibody Screen 11/08/17 11/08/17 11/08/17 14:30 14:30 14:30 WBC RBC Hgb Hct MCV MCH MCHC RDW Plt Count MPV Neutrophils % Neutrophils % (Manual) Band Neutrophils % Lymphocytes % Lymphocytes % (Manual) Monocytes % (Manual) Platelet Estimate PT with INR INR PTT (Actin FS) Sodium 128 L Potassium 5.2 H Chloride 93 L Carbon Dioxide 23 Anion Gap 12 BUN 33 H Creatinine 1.1 Creat Clearance w eGFR > 60 Random Glucose 142 H Lactic Acid Calcium 8.4 Phosphorus Magnesium Total Bilirubin 0.9 AST 33 ALT 29 Alkaline Phosphatase 129 H Troponin I < 0.03 Total Protein 6.9 Albumin 3.0 L Lipase 53 L Urine Color Urine Appearance Urine pH Ur Specific [place] Urine Protein Urine Glucose (UA) Urine Ketones Urine Blood Urine Nitrite Urine Bilirubin Urine Urobilinogen Ur Leukocyte Esterase Urine WBC (Auto) Urine RBC (Auto) Urine RBC Urine WBC Ur Epithelial Cells Urine Bacteria Urine Mucus Ur Random Sodium Ur Random Potassium Ur Random Chloride Blood Type Antibody Screen 11/08/17 11/08/17 11/08/17 17:51 23:40 23:40 WBC 10.0 RBC 3.55 L Hgb 9.3 L Hct 28.1 L MCV 79.2 L MCH 26.3 MCHC 33.2 RDW 16.8 H Plt Count 271 MPV 7.8 Neutrophils % Neutrophils % (Manual) Band Neutrophils % Lymphocytes % Lymphocytes % (Manual) Monocytes % (Manual) Platelet Estimate PT with INR 13.10 H INR 1.16 H PTT (Actin FS) Sodium Potassium Chloride Carbon Dioxide Anion Gap BUN Creatinine Creat Clearance w eGFR Random Glucose Lactic Acid 1.1 Calcium Phosphorus Magnesium Total Bilirubin AST ALT Alkaline Phosphatase Troponin I Total Protein Albumin Lipase Urine Color Urine Appearance Urine pH Ur Specific [place] Urine Protein Urine Glucose (UA) Urine Ketones Urine Blood Urine Nitrite Urine Bilirubin Urine Urobilinogen Ur Leukocyte Esterase Urine WBC (Auto) Urine RBC (Auto) Urine RBC Urine WBC Ur Epithelial Cells Urine Bacteria Urine Mucus Ur Random Sodium Ur Random Potassium Ur Random Chloride Blood Type Antibody Screen 11/08/17 11/08/17 11/09/17 23:40 23:40 02:00 WBC RBC Hgb Hct MCV MCH MCHC RDW Plt Count MPV Neutrophils % Neutrophils % (Manual) Band Neutrophils % Lymphocytes % Lymphocytes % (Manual) Monocytes % (Manual) Platelet Estimate PT with INR INR PTT (Actin FS) Sodium 138 Potassium 4.1 Chloride 101 Carbon Dioxide 23 Anion Gap 14 BUN 34 H Creatinine 1.1 Creat Clearance w eGFR > 60 Random Glucose 108 H Lactic Acid Calcium 7.5 L Phosphorus 4.2 Magnesium 2.2 Total Bilirubin 0.8 AST 49 H ALT 40 Alkaline Phosphatase 131 H Troponin I Total Protein 6.0 L Albumin 2.5 L Lipase Urine Color Urine Appearance Urine pH Ur Specific [place] Urine Protein Urine Glucose (UA) Urine Ketones Urine Blood Urine Nitrite Urine Bilirubin Urine Urobilinogen Ur Leukocyte Esterase Urine WBC (Auto) Urine RBC (Auto) Urine RBC Urine WBC Ur Epithelial Cells Urine Bacteria Urine Mucus Ur Random Sodium 41 Ur Random Potassium 39.5 Ur Random Chloride 22 Blood Type A POSITIVE Antibody Screen Negative 11/09/17 11/09/17 11/09/17 02:00 07:45 07:45 WBC 8.4 RBC 3.47 L Hgb 9.0 L Hct 27.5 L MCV 79.3 L MCH 26.1 MCHC 32.9 RDW 16.8 H Plt Count 240 MPV 7.9 Neutrophils % Neutrophils % (Manual) Band Neutrophils % Lymphocytes % Lymphocytes % (Manual) Monocytes % (Manual) Platelet Estimate PT with INR INR PTT (Actin FS) Sodium 139 Potassium 4.2 Chloride 106 Carbon Dioxide 24 Anion Gap 9 BUN 32 H Creatinine 0.9 Creat Clearance w eGFR > 60 Random Glucose 94 Lactic Acid Calcium 7.1 L Phosphorus 3.4 Magnesium 2.2 Total Bilirubin 0.7 AST 47 H ALT 42 Alkaline Phosphatase 130 H Troponin I Total Protein 5.7 L Albumin 2.3 L Lipase Urine Color Yellow Urine Appearance Cloudy Urine pH 5.0 Ur Specific [place] 1.035 Urine Protein Negative Urine Glucose (UA) Negative Urine Ketones 1+ H Urine Blood 1+ H Urine Nitrite Negative Urine Bilirubin Negative Urine Urobilinogen Negative Ur Leukocyte Esterase Negative Urine WBC (Auto) 3 Urine RBC (Auto) 9 Urine RBC Urine WBC Ur Epithelial Cells Urine Bacteria Urine Mucus Rare Ur Random Sodium Ur Random Potassium Ur Random Chloride Blood Type Antibody Screen Sinus rhythm with RBBB Problem List - Problems (1) Small bowel obstruction Code(s): K56.609 - UNSP INTESTNL OBST, UNSP TO PARTIAL VERSUS COMPLETE OBST (2) Inguinal hernia Code(s): K40.90 - UNIL INGUINAL HERNIA, W/O OBST OR GANGR, NOT SPCF RECUR (3) HTN (hypertension) Code(s): I10 - ESSENTIAL (PRIMARY) HYPERTENSION Qualifiers: Hypertension type: essential hypertension Qualified Code(s): I10 - Essential (primary) hypertension (4) Hypercholesterolemia Code(s): E78.00 - PURE HYPERCHOLESTEROLEMIA, UNSPECIFIED Assessment/Plan 1. Right inguinal hernia with high grade small bowel obstruction 2. Hypertension 3. Hypercholesterolemia 4. Right bundle branch block PLAN: 1. No absolute contraindication in proceeding with surgery in view of absence of ischemic symptoms, decompensated congestive heart failure or malignant arrhythmia and in view of presentation with high grade SBO requiring urgent surgery. Post operative cardiac enzyme and ECG recommended 2. Continue present management 3. Further cardiac work up can be done as outpatient with his first aid attendant Further plans are to follow Tyrell Leach MD
--- NOTE | 2017-11-09 14:36 | MSN ---
Progress Note (SOAP) - Subjective Chief Complaint: Bilateral inguinal hernia History of Present Illness: Patient is a 81 year old male with pertinent past medical hx of htn, osteoarthritis, heaptitis (unknown type), and anxiety that presented to the ER after 3 days of nausea and vomiting. The patient describes the vomiting episodes as bilious, devoid of blood, and occurring at a rate of every two hours. While in the ER the patient was found to have a large left sided and small right sided inguinal hernia. Today the patient states that he is feeling better and describes no nausea, vomiting or abdominal pain since coming to the hospital. The patient states that he is not having any symptoms associated with his b/l inguinal hernias. The patient is only complaining of new onset diarrhea that started at 5am this morning, is watery, and happened twice. The patient also stated feeling anxious since being admitted to the hospital. ROS: negative for chest pain, SOB, abdominal pain, N/V, fever or chills ED course: notable for hyperkalemia and hyponatremia treated with N/S. - Current Medications Current Medications: Active Medications Acetaminophen (Tylenol -) 650 mg PO Q4H PRN PRN Reason: PAIN Atorvastatin Calcium (Lipitor -) 20 mg PO HS [facility] Citalopram Hydrobromide (Celexa -) 20 mg PO DAILY [facility] Last Admin: 11/09/17 13:34 Dose: Not Given Heparin Sodium (Porcine) (Heparin -) 5,000 unit SQ TID [facility] Last Admin: 11/09/17 05:58 Dose: 5,000 unit Dextrose (D5w -) 1,000 mls @ 50 mls/hr IV Q20H [facility] - Objective Vital Signs: Vital Signs Temperature 99.2 F 11/09/17 05:00 Pulse Rate 96 H 11/09/17 09:00 Respiratory Rate 20 11/09/17 09:00 Blood Pressure 132/59 11/09/17 09:00 O2 Sat by Pulse Oximetry (%) 96 11/09/17 06:56 Constitutional: Yes: Well Nourished, No Distress, Anxious Eyes: Yes: EOM Intact, Other (pupils small and minimally reactive ) HENT: Yes: Atraumatic, Normocephalic, Thrush Neck: Yes: Supple, Trachea Midline Cardiovascular: Yes: Regular Rate and Rhythm, S1 (3/6 systolic murmur that radiates to the right carotid ) Respiratory: Yes: Other (crackles heard bilaterally in the lower lung rose ) Gastrointestinal: Yes: Normal Bowel Sounds, Soft. No: Tenderness Genitourinary: Yes: Other (large left inguinal henria ) Musculoskeletal: Yes: Back Pain Peripheral Pulses: Left Doralis Pedis: 2+, Right Dorsalis Pedis: 2+ Edema: No Neurological: Yes: Cran Nerves II-XII Intact ...Motor Strength: Yes: WNL Labs Lab Results: CBC, BMP 11/09/17 07:45 11/09/17 07:45 Problem List - Problems (1) Bowel obstruction Code(s): K56.609 - UNSP INTESTNL OBST, UNSP TO PARTIAL VERSUS COMPLETE OBST Qualifiers: Intestinal obstruction type: unspecified Intestinal obstruction extent: complete Qualified Code(s): K56.601 - Complete intestinal obstruction, unspecified as to cause (2) Inguinal hernia Code(s): K40.90 - UNIL INGUINAL HERNIA, W/O OBST OR GANGR, NOT SPCF RECUR (3) Liver mass Code(s): R16.0 - HEPATOMEGALY, NOT ELSEWHERE CLASSIFIED (4) Small bowel obstruction Code(s): K56.609 - UNSP INTESTNL OBST, UNSP TO PARTIAL VERSUS COMPLETE OBST Assessment/Plan Assessment/Plan: Patient is an 82 year old male with past hx of HTN, osteoarthritis, hepatitis (unkown type) and anxiety that presented to the ER with 3 days of bilious vomiting and B/L inguinal hernia with right sided bowel obstruction. # B/L inguinal hernia with right sided bowel obstruction - small bowel obstruction on the right confirmed by CT on 11/08 - NPO - Start 1/2 normal saline, to stop rapid rise in sodium - NG tube is not placed to decompress bowel as per refusal of family members - General surgeon Dr. De La Paz consulted, described surgery as urgent - patient has agreed to right inguinal hernia repair with possible small bowel resection - will start morphine PRN for post operative pain # Systolic Murmur - cardiology consult placed - Echo order to asses cardiac function although not necessary given the urgent nature of the surgery - Echo showed normal left ventricular size and function and mild to moderate aortic stenosis # Hyponatremia - corrected with N/S from 128 to 138 in 8hrs - correction of sodium should be no more than 10 in 24 hours to prevent locked in syndrome - will change N/S to 1/2 normal saline # Hyperkalemia - Resolved from 5.2 to 4.2 - continue to monitor CMP # Anemia - low MCV consistent with iron deficiency - will obtain Iron studies - keep in mind the possibility of normal or high ferritin due to acute phase reaction # Liver Lesion - CT on 11/08 showed lesions suspsicious for metastatic disease - family does not wish to address this issue at this time - GI consult has been canceled # Thrush - Hold nystatin until after surgery because of patient NPO status #DVT prophylaxis - Heparin 5000 sub Q TID Dispo - admitted to [facility] and will undergoe surgery on right inguinal hernia and small bowel
--- NOTE | 2017-11-09 15:44 | PN ---
Teaching Attending Note Name of Resident: Nikko Kumar ATTENDING PHYSICIAN STATEMENT I saw and evaluated the patient. I reviewed the resident's note and discussed the case with the resident. I agree with the resident's findings and plan as documented. SUBJECTIVE: No fever or chills . No abd pain when seen at 11 am . did nto pass gas. No N/V OBJECTIVE: NAD . AAOx3 Cv; RRR, 3/6 Sm at LUSB and to a minimal extent RUSB with extension to carotid. 3/6 SM at apex with radiatio to axilla Lungs: R base crackles Ext: no edema , no erythema Abd: soft, slightly distended. mild discomfort in R inguinal area with no hernia felt ( reduced earlier by Dr. mock ) . L inguinal hernia filing the L hemiscrotum with bowel sounds heard in henia sac no skin changes over henia ASSESSMENT AND PLAN: 82 y/o man with h/o chronic back pain, HTN, L inguinal hernia, HLP and depression who presented with abd pain and distentin and was found to have SBO a tthe level of R inguinal hernia 1- SBO 2/2 R inguinal hernia. declined NGT. pain is controlled. d/W Dr. Mock, surgical intervention is needed urgently pending OR availability - pain control - IVF ( switch to D5w ) - NPO - Echo with Mod-severe , and mild MR, TR. due to the urgency of the surgery no surgical intervention should be delayed for cardiac procedures. he is at high risk of nat-op cardiac complications given his - QTC 503. Avoid any QTC prolonging agents. d/w Dr. mock 2- Hyponatremia: likely due to hypovolemia and GI loss. corrected rapidly with NS overnight. - switch IVF to D5W and repeat NA level - goal is to keep Na around same number today . will adjust IVF type/rate accordingly . if stable switch to NS tomorrow 3- Liver masses o n CT scan : explained to pt and family possibility of Mets. also lung lesion seen . they opted for no further w/u as inpt . even staging was declined. - f/u as out PT 4- Prolonged QTC. 503. - decrease celexa to 10 from 20 daily . can't stop abruptly - avoid any Qtc prolonging agents - No zofran 5- HTN: hold norvasc and labetalol. use IV meds if needed or po with sips after surgery Dispo : OC
[2017-11-09] MEDS ORDERED: MIDAZOLAM HCL 2 MG/2 ML SINGLE DOSE VIAL ONE (17:14)
[2017-11-09] MEDS ORDERED: ROCURONIUM BROMIDE 50 MG/5 ML VIAL ONE (17:14)
[2017-11-09] MEDS ORDERED: ETOMIDATE 20 MG/10 ML AMPUL IVPUSH ONE (17:22)
[2017-11-09] MEDS ORDERED: LIDOCAINE HCL/PF 2% SDV 5ML VIAL ONE (17:22)
[2017-11-09] MEDS ORDERED: ERTAPENEM SODIUM 1 GM VIAL ONE (17:24)
[2017-11-09] MEDS ORDERED: ERTAPENEM SODIUM 1 GM VIAL IVPB ONE (17:32)
[2017-11-09] MEDS ORDERED: SODIUM CHLORIDE 0.9% P/F 10 ML VIAL IJ ONE (17:33)
[2017-11-09] MEDS ORDERED: ONDANSETRON 4 MG/2 ML VIAL ONE (18:26)
[2017-11-09] MEDS ORDERED: DEXAMETHASONE SOD PHOSPHATE 4 MG/1 ML VIAL ONE (18:26)
[2017-11-09] MEDS ORDERED: BUPIVACAINE HCL/PF 0.5% (5MG/ML) 10 ML VIAL ONE (18:56)
[2017-11-09] MEDS ORDERED: BUPIVACAINE HCL/PF (5 MG/ML) 30 ML VIAL IJ ONE (19:00)
[2017-11-09] MEDS ORDERED: oxyCODONE HCL 5 MG TABLET PO PRN ×2 (19:03→19:04)
[2017-11-09] MEDS ORDERED: ONDANSETRON 4 MG/2 ML VIAL IVPUSH PRN ×2 (19:04→19:44)
[2017-11-09] MEDS ORDERED: NEOSTIGMINE METHYLSULFATE 0.5 MG/ML - 10 ML MDV ONE (19:04)
[2017-11-09] MEDS ORDERED: GLYCOPYRROLATE 0.2 MG/1 ML VIAL ONE (19:05)
[2017-11-09] MEDS ORDERED: morphine SULFATE 4 MG/ML VIAL IVPUSH PRN ×2 (19:12→19:13)
[2017-11-09] MEDS ORDERED: DEXTROSE 5%-0.45% SALINE 1,000 ML IV SCH (19:15)
--- NOTE | 2017-11-09 19:22 | OP ---
Operative Note - Note: Operative Date: 11/09/17 Pre-Operative Diagnosis: incarcerated right inguinal hernia Operation: Right incarcerated inguinal hernia repair with mesh Post-Operative Diagnosis: Same as Pre-op Surgeon: Jez De La Paz Publicity Consultant: Eri Pritchard Anesthesiologist/GALLERY HOST: Iraida Wilson Anesthesia: General Specimens Removed: hernia sack Estimated Blood Loss (mls): 20 Drains, Volume Out (mls): 175 (pink) Fluid Volume Replaced (mls): 700 Operative Report Dictated: Yes
--- NOTE | 2017-11-09 19:23 | SURG ---
Surgery Bioanalyst Note Bioanalyst: Eri Pritchard PA-C Date of Service: 11/09/17 Diagnosis: right incarcerated inguinal hernia Procedure: right incarcerated inguinal hernia repair with mesh I was present for the entirety of the operative procedure. For further detail, please refer to operative report. Visit type - Case Type Case Type: ED Admission - Emergency Emergency Visit: Yes ED Registration Date: 11/08/17 Care time: The patient presented to the Emergency Department on the above date and was hospitalized for further evaluation of their emergent condition. - New patient This patient is new to me today: Yes Date on this admission: 11/09/17
[2017-11-09] MEDS ORDERED: LACTATED RINGERS SOLUTION 1,000 ML IV SCH (19:45)
[2017-11-09] MEDS ORDERED: ALBUTEROL SO4 0.083% IH SOL 2.5 MG/3 ML VIAL.NEB. NEB ONE (20:15)
[2017-11-09] MEDS ORDERED: ACETAMINOPHEN 325 MG TABLET (FP) PO PRN (21:07)
[2017-11-09] MEDS ORDERED: ATORVASTATIN CA 10 MG TABLET (FP) PO SCH (22:00)
[2017-11-09] MEDS: ATORVASTATIN CA 20 MG TABLET (FP) PO SCH (22:24)
[2017-11-09 23:10] LABS: ANION GAP 5 (8-16); BLOOD UREA NITROGEN 24 mg/dL (7-18); CALCIUM 7.1 mg/dL (8.5-10.1); CHLORIDE 104 mmol/L (98-107); CO2 28 mmol/L (21-32); CREATININE 0.9 mg/dL (0.7-1.3); GLUCOSE,RANDOM 96 mg/dL (74-106); POTASSIUM 4.3 mmol/L (3.5-5.1); SODIUM 137 mmol/L (136-145)
--- NOTE | 2017-11-09 23:16 | PN ---
Physical Exam: SUBJECTIVE: Briefly, 82yo M history of HTN, OA, hepatitis, and cholecystectomy ( 1999) who presented with 3 days worth of nausea, bilious/nonbloody vomiting and abdominal pain. Pt reports not being able to eat or hold down fluids. He has been able to pass gas, however his last BM was about 24hrs ago with hard consistency. Currently pt has mild abdominal discomfort, but denies any shortness of breath, chest pain/discomfort, palpitations, fever, chills, continued episodes of vomiting. OBJECTIVE: Vital Signs Period Temp Pulse Resp BP Sys/Noble Pulse Ox Last 24 Hr 98.0 F-99.5 F 76-96 18-29 112-132/47-65 94-97 GENERAL: NAD, awake, alert, and fully oriented, laying in bed. HEENT: EOMI, RASHMI, sclera anicteric, moist mucosa LUNGS: CTA bilaterally, no wheezes, no crackles, no accessory muscle use. HEART: RRR, S1, S2 with 3/6 systolic murmur at LUSB and radiation to carotids. 2 /6 systolic murmur at apex ABDOMEN: Soft, mild distention, hypoactive BS, nontender, L large inguinal hernia noted, R small nonreducible inguinal hernia w/o overlying skin changes noted. EXTREMITIES: 2+ Dp pulses, warm, no edema. PSYCH: Normal mood, normal affect. SKIN: Warm, dry, no rashes or lesions noted Laboratory Results - last 24 hr 11/08/17 11/08/17 11/08/17 23:40 23:40 23:40 WBC 10.0 RBC 3.55 L Hgb 9.3 L Hct 28.1 L MCV 79.2 L MCH 26.3 MCHC 33.2 RDW 16.8 H Plt Count 271 MPV 7.8 PT with INR 13.10 H INR 1.16 H Sodium 138 Potassium 4.1 Chloride 101 Carbon Dioxide 23 Anion Gap 14 BUN 34 H Creatinine 1.1 Creat Clearance w eGFR > 60 Random Glucose 108 H Calcium 7.5 L Phosphorus 4.2 Magnesium 2.2 Total Bilirubin 0.8 AST 49 H ALT 40 Alkaline Phosphatase 131 H Total Protein 6.0 L Albumin 2.5 L Urine Color Urine Appearance Urine pH Ur Specific [place] Urine Protein Urine Glucose (UA) Urine Ketones Urine Blood Urine Nitrite Urine Bilirubin Urine Urobilinogen Ur Leukocyte Esterase Urine WBC (Auto) Urine RBC (Auto) Urine Mucus Ur Random Sodium Ur Random Potassium Ur Random Chloride Blood Type Antibody Screen 11/08/17 11/09/17 11/09/17 23:40 02:00 02:00 WBC RBC Hgb Hct MCV MCH MCHC RDW Plt Count MPV PT with INR INR Sodium Potassium Chloride Carbon Dioxide Anion Gap BUN Creatinine Creat Clearance w eGFR Random Glucose Calcium Phosphorus Magnesium Total Bilirubin AST ALT Alkaline Phosphatase Total Protein Albumin Urine Color Yellow Urine Appearance Cloudy Urine pH 5.0 Ur Specific [place] 1.035 Urine Protein Negative Urine Glucose (UA) Negative Urine Ketones 1+ H Urine Blood 1+ H Urine Nitrite Negative Urine Bilirubin Negative Urine Urobilinogen Negative Ur Leukocyte Esterase Negative Urine WBC (Auto) 3 Urine RBC (Auto) 9 Urine Mucus Rare Ur Random Sodium 41 Ur Random Potassium 39.5 Ur Random Chloride 22 Blood Type A POSITIVE Antibody Screen Negative 11/09/17 11/09/17 11/09/17 07:45 07:45 22:00 WBC 8.4 RBC 3.47 L Hgb 9.0 L Hct 27.5 L MCV 79.3 L MCH 26.1 MCHC 32.9 RDW 16.8 H Plt Count 240 MPV 7.9 PT with INR INR Sodium 139 137 Potassium 4.2 4.3 Chloride 106 104 Carbon Dioxide 24 28 Anion Gap 9 5 L BUN 32 H 24 H D Creatinine 0.9 0.9 Creat Clearance w eGFR > 60 Random Glucose 94 96 Calcium 7.1 L 7.1 L Phosphorus 3.4 Magnesium 2.2 Total Bilirubin 0.7 AST 47 H ALT 42 Alkaline Phosphatase 130 H Total Protein 5.7 L Albumin 2.3 L Urine Color Urine Appearance Urine pH Ur Specific [place] Urine Protein Urine Glucose (UA) Urine Ketones Urine Blood Urine Nitrite Urine Bilirubin Urine Urobilinogen Ur Leukocyte Esterase Urine WBC (Auto) Urine RBC (Auto) Urine Mucus Ur Random Sodium Ur Random Potassium Ur Random Chloride Blood Type Antibody Screen 11/09/17 22:00 WBC RBC Hgb Hct MCV MCH MCHC RDW Plt Count MPV PT with INR INR Sodium 138 Potassium Chloride Carbon Dioxide Anion Gap BUN Creatinine Creat Clearance w eGFR Random Glucose Calcium Phosphorus Magnesium Total Bilirubin AST ALT Alkaline Phosphatase Total Protein Albumin Urine Color Urine Appearance Urine pH Ur Specific [place] Urine Protein Urine Glucose (UA) Urine Ketones Urine Blood Urine Nitrite Urine Bilirubin Urine Urobilinogen Ur Leukocyte Esterase Urine WBC (Auto) Urine RBC (Auto) Urine Mucus Ur Random Sodium Ur Random Potassium Ur Random Chloride Blood Type Antibody Screen Active Medications Generic Name Dose Route Start Last Admin Trade Name Freq PRN Reason Stop Dose Admin Acetaminophen 650 mg 11/09/17 21:07 Tylenol - PO Q4H PRN FEVER Atorvastatin Calcium 20 mg 11/09/17 22:00 11/09/17 22:24 Lipitor - PO 20 mg HS KIMBER Administration Citalopram Hydrobromide 10 mg 11/10/17 10:00 Celexa - PO DAILY KIMBER Heparin Sodium (Porcine) 5,000 unit 11/09/17 22:00 11/09/17 22:24 Heparin - SQ 5,000 unit TID KIMBER Administration Dextrose/Sodium Chloride 1,000 mls @ 75 mls/hr 11/09/17 19:15 11/09/17 22:23 D5-1/2ns - IV 75 mls/hr ASDIR KIMBER Administration Morphine Sulfate 4 mg 11/09/17 19:13 Morphine Sulfate IVPUSH Q6H PRN PAIN LEVEL 7 - 10 Ondansetron HCl 4 mg 11/09/17 19:04 Zofran Injection IVPUSH Q6H PRN NAUSEA AND/OR VOMITING Oxycodone HCl 5 mg 11/09/17 19:03 Roxicodone - PO Q6H PRN PAIN LEVEL 1 - 3 Oxycodone HCl 10 mg 11/09/17 19:04 Roxicodone - PO Q6H PRN PAIN LEVEL 4 - 6 ASSESSMENT/PLAN: 1) SBO 2/2 R inguinal hernia --Reduced by Dr. De La Paz immediately after exam --Pt recommended for OR --NPO currently --Surgical intervention is urgent and should not be delayed --Echo cardiogram showing mod-severe aortic stenosis, mild MR and mild TR --Pt is high risk for an intermediate risk procedure --Pt tolerating clear liquid diet effectively --Continue pain control with Roxicodone 5mg PO q6h PRN --will discontinue 10mg and Morphine due to lack of use from patient --Continue to monitor for flatus and BM --Dr. De La Paz on the case 2) Hyponatremia --2/2 to dehydration and losses via GI tract --Switching to D5W due to rapid correction with NS 3) Liver mass --Found on CT scan with suspect metastasis --CXR with suspect RUL nodule --Discussed with pt and family previously, however would not like to discuss it further. Event staging previous declined 4) Prolonged QTc 503 --Decreased to celexa 10mg qDaily --Avoid Qtc prolonging medications 5) H/o HTN --Labetalol HCL 200mg PO BID FEN: --NPO for surgery --Hyponatremia as above --D5W PPX: DVT - Heparin SQ GI - none indicated currently Dispo: OR today for R inguinal hernia repair Case discussed with Dr. Hong Kumar, DO - IM PGY-1 Visit type - Emergency Visit Emergency Visit: No - New Patient This patient is new to me today: No - Critical Care Critical Care patient: No
[2017-11-10] MEDS: HEPARIN NA (PORCINE) 5,000 UNITS/ML 1ML VIAL SQ SCH ×3 (06:18→21:12)
[2017-11-10 08:53] LABS: BASO % 0.1 % (0-2.0); HEMATOCRIT 28.1 % (35.4-49); HEMOGLOBIN 9.2 GM/dL (11.7-16.9); LYMPH % 5.6 % (8-40); MCH 26.2 pg (25.7-33.7); MCHC 32.7 g/dl (32.0-35.9); MEAN CELL VOLUME 80.1 fl (80-96); MEAN PLT VOLUME 7.9 fl (7.5-11.1); MONO % 6.2 % (3.8-10.2); NEUT % 88.1 % (42.8-82.8); PLATELET COUNT 227 K/MM3 (134-434); RDW 16.4 % (11.9-15.9)
[2017-11-10] MEDS: CITALOPRAM HYDROBROMIDE 20 MG TABLET (FP) PO SCH (09:00)
[2017-11-10 09:52] LABS: ANION GAP 4 (8-16); BLOOD UREA NITROGEN 18 mg/dL (7-18); CALCIUM 7.2 mg/dL (8.5-10.1); CHLORIDE 105 mmol/L (98-107); CO2 28 mmol/L (21-32); CREATININE 0.7 mg/dL (0.7-1.3); GLUCOSE,RANDOM 111 mg/dL (74-106); POTASSIUM 4.4 mmol/L (3.5-5.1); SODIUM 137 mmol/L (136-145)
[2017-11-10] MEDS ORDERED: CITALOPRAM HYDROBROMIDE 10 MG TABLET (FP) PO SCH (10:00)
[2017-11-10] MEDS ORDERED: oxyCODONE HCL 5 MG TABLET PO PRN (10:24)
--- NOTE | 2017-11-10 11:42 | PN ---
Progress Note (short form) - Note Progress Note: 82yo M postop day 1 s/p Rt inguinal hernia repair for incarcerated hernia. Pt currently tolerating liquids and ambulating well. Afebrile. Complains of mild tenderness at incision site. Last Vital Signs Temp Pulse Resp BP Pulse Ox 99.3 F 86 20 145/67 93 L 11/10/17 05:29 11/10/17 05:29 11/10/17 05:29 11/10/17 05:29 11/09/17 21:48 CBC, BMP 11/10/17 07:45 11/10/17 07:45 PE: General: A&O x 3 Abd: soft nontender Pelvis: Rt inguinal incision with bandage in place, non bloody, mild tenderness to palpation. Very Large Lt inguinal hernia x 40 years (asymptomatic) Problem List - Problems (1) Inguinal hernia Assessment/Plan: Plan: Advance diet as tolerated D/C IV Continue OOB and ambulate Pt to follow up with Dr. De La Paz 1 week after discharge. No further surgical intervention, reconsult PRN. On behalf of Dr. De La Paz thank you for the opportunity to be part of this patients care. Code(s): K40.90 - UNIL INGUINAL HERNIA, W/O OBST OR GANGR, NOT SPCF RECUR (2) Small bowel obstruction Code(s): K56.609 - UNSP INTESTNL OBST, UNSP TO PARTIAL VERSUS COMPLETE OBST
--- NOTE | 2017-11-10 11:58 | PN ---
Progress Note, Physician History of Present Illness: Right incarcerated inguinal hernia repair with mesh POD#1. Trial of clear liquid diet. Mild incisional discomfort, but denies chest pain or dyspnea. - Current Medication List Current Medications: Active Medications Acetaminophen (Tylenol -) 650 mg PO Q4H PRN PRN Reason: FEVER Atorvastatin Calcium (Lipitor -) 20 mg PO HS [facility] Last Admin: 11/09/17 22:24 Dose: 20 mg Citalopram Hydrobromide (Celexa -) 10 mg PO DAILY [facility] Last Admin: 11/10/17 09:00 Dose: 10 mg Heparin Sodium (Porcine) (Heparin -) 5,000 unit SQ TID [facility] Last Admin: 11/10/17 06:18 Dose: 5,000 unit Dextrose/Sodium Chloride (D5-1/2ns -) 1,000 mls @ 75 mls/hr IV ASDIR [facility] Last Admin: 11/09/17 22:23 Dose: 75 mls/hr Ondansetron HCl (Zofran Injection) 4 mg IVPUSH Q6H PRN PRN Reason: NAUSEA AND/OR VOMITING Oxycodone HCl (Roxicodone -) 5 mg PO Q6H PRN PRN Reason: PAIN LEVEL 6-10 - Objective Vital Signs: Vital Signs Temperature 99.3 F 11/10/17 05:29 Pulse Rate 86 11/10/17 05:29 Respiratory Rate 20 11/10/17 05:29 Blood Pressure 145/67 11/10/17 05:29 O2 Sat by Pulse Oximetry (%) 93 L 11/09/17 21:48 Constitutional: Yes: No Distress, Calm Neck: Yes: Supple Cardiovascular: Yes: Regular Rate and Rhythm Respiratory: Yes: Regular, CTA Bilaterally Gastrointestinal: Yes: Normal Bowel Sounds, Soft Edema: No Labs: CBC, BMP 11/10/17 07:45 11/10/17 07:45 INR, PTT INR 1.16 (0.82-1.09) H 11/08/17 23:40 Problem List - Problems (1) HTN (hypertension) Code(s): I10 - ESSENTIAL (PRIMARY) HYPERTENSION Qualifiers: Hypertension type: essential hypertension Qualified Code(s): I10 - Essential (primary) hypertension (2) Hypercholesterolemia Code(s): E78.00 - PURE HYPERCHOLESTEROLEMIA, UNSPECIFIED (3) Inguinal hernia Code(s): K40.90 - UNIL INGUINAL HERNIA, W/O OBST OR GANGR, NOT SPCF RECUR Qualifiers: Laterality: unilateral (4) Right bundle branch block Code(s): I45.10 - UNSPECIFIED RIGHT BUNDLE-BRANCH BLOCK Assessment/Plan Echo: 11/09/2017 Normal biventricular size and fxn, mild-mod , mild MR, TR, pulm HTN 1. Right incarcerated inguinal hernia repair with mesh POD#1 stable CV-concepcion 2. Hypertension 3. Hypercholesterolemia 4. Right bundle branch block PLAN: 1. Continue Lipitor 20 qhs, resume ASA 81 qd once hemostasis achieved, resume labetolol 200 bid with uptitration to target as tolerated 2. DVT prophylaxis, analgesia as needed, advance diet as tolerated 3. Further cardiac work up can be done as outpatient with his broom stitcher, charlie planning
--- NOTE | 2017-11-10 13:52 | PN ---
Progress Note, Physician Chief Complaint: day #1 s/p open RIH repair - Current Medication List Current Medications: Active Medications Acetaminophen (Tylenol -) 650 mg PO Q4H PRN PRN Reason: FEVER Atorvastatin Calcium (Lipitor -) 20 mg PO HS [facility] Last Admin: 11/09/17 22:24 Dose: 20 mg Citalopram Hydrobromide (Celexa -) 10 mg PO DAILY [facility] Last Admin: 11/10/17 09:00 Dose: 10 mg Heparin Sodium (Porcine) (Heparin -) 5,000 unit SQ TID [facility] Last Admin: 11/10/17 13:41 Dose: 5,000 unit Dextrose/Sodium Chloride (D5-1/2ns -) 1,000 mls @ 75 mls/hr IV ASDIR [facility] Last Admin: 11/09/17 22:23 Dose: 75 mls/hr Labetalol HCl (Normodyne -) 200 mg PO BID [facility] Ondansetron HCl (Zofran Injection) 4 mg IVPUSH Q6H PRN PRN Reason: NAUSEA AND/OR VOMITING Oxycodone HCl (Roxicodone -) 5 mg PO Q6H PRN PRN Reason: PAIN LEVEL 6-10 - Objective Vital Signs: Vital Signs Temperature 99.3 F 11/10/17 05:29 Pulse Rate 86 11/10/17 05:29 Respiratory Rate 20 11/10/17 05:29 Blood Pressure 145/67 11/10/17 05:29 O2 Sat by Pulse Oximetry (%) 93 L 11/09/17 21:48 Labs: CBC, BMP 11/10/17 07:45 11/10/17 07:45 INR, PTT INR 1.16 (0.82-1.09) H 11/08/17 23:40 Assessment/Plan Doing well after GA. Pain well controlled. Continue current care
--- NOTE | 2017-11-10 18:04 | PN ---
<Nikko Kumar - Last Filed: 11/10/17 18:05> Physical Exam: SUBJECTIVE: Pt reports tolerating his food well even though he wants to eat a full diet. Pt denies any flatus or BM at this point. He reports feeling much better with improved abdominal pain. OBJECTIVE: Vital Signs Period Temp Pulse Resp BP Sys/Noble Pulse Ox Last 24 Hr 98.0 F-99.6 F 76-90 18-29 112-145/47-68 93-97 GENERAL: NAD, awake, alert, and sitting in bed HEENT: EOMI, RASHMI, dry-moist mucosa LUNGS: CTA bilaterally, no wheezes, no crackles, no accessory muscle use. HEART: RRR, S1, S2 without murmur ABDOMEN: Soft, nontender, nondistended, hypoactive bowel sounds, no guarding, incision R inguinal region C/D/I currently, extensive L inguinal hernia unchanged from previous exam EXTREMITIES: 2+ DP pulses, well-perfused, no edema. PSYCH: Normal mood, normal affect. SKIN: Warm, dry, no rashes, incision as above Laboratory Results - last 24 hr 11/09/17 11/09/17 11/10/17 22:00 22:00 07:45 WBC RBC Hgb Hct MCV MCH MCHC RDW Plt Count MPV Neutrophils % Lymphocytes % Monocytes % Eosinophils % Basophils % Sodium 137 138 137 Potassium 4.3 4.4 Chloride 104 105 Carbon Dioxide 28 28 Anion Gap 5 L 4 L BUN 24 H D 18 D Creatinine 0.9 0.7 D Random Glucose 96 111 H Calcium 7.1 L 7.2 L Ferritin 186.247 11/10/17 07:45 WBC 8.0 RBC 3.50 L Hgb 9.2 L Hct 28.1 L MCV 80.1 MCH 26.2 MCHC 32.7 RDW 16.4 H Plt Count 227 MPV 7.9 Neutrophils % 88.1 H Lymphocytes % 5.6 L Monocytes % 6.2 Eosinophils % 0.0 Basophils % 0.1 Sodium Potassium Chloride Carbon Dioxide Anion Gap BUN Creatinine Random Glucose Calcium Ferritin Active Medications Generic Name Dose Route Start Last Admin Trade Name Freq PRN Reason Stop Dose Admin Acetaminophen 650 mg 11/09/17 21:07 Tylenol - PO Q4H PRN FEVER Atorvastatin Calcium 20 mg 11/09/17 22:00 05/08/18 22:24 Lipitor - PO 20 mg HS KIMBER Administration Citalopram Hydrobromide 10 mg 11/10/17 10:00 11/10/17 09:00 Celexa - PO 10 mg DAILY KIMBER Administration Heparin Sodium (Porcine) 5,000 unit 11/09/17 22:00 11/10/17 13:41 Heparin - SQ 5,000 unit TID KIMBER Administration Dextrose/Sodium Chloride 1,000 mls @ 75 mls/hr 11/09/17 19:15 11/09/17 22:23 D5-1/2ns - IV 75 mls/hr ASDIR KIMBER Administration Labetalol HCl 200 mg 11/10/17 22:00 Normodyne - PO BID KIMBER Ondansetron HCl 4 mg 11/09/17 19:04 Zofran Injection IVPUSH Q6H PRN NAUSEA AND/OR VOMITING Oxycodone HCl 5 mg 11/10/17 10:24 Roxicodone - PO Q6H PRN PAIN LEVEL 6-10 ASSESSMENT/PLAN: 1) SBO 2/2 R inguinal hernia --POD#1 open hernia repair --Pt tolerating clear liquid diet effectively --Continue pain control with Roxicodone 5mg PO q6h PRN --will discontinue 10mg and Morphine due to lack of use from patient --Continue to monitor for flatus and BM --Dr. De La Paz on the case 2) Hyponatremia --Resolved 3) Liver mass --Found on CT scan with suspect metastasis --CXR with suspect RUL nodule --Discussed with pt and family previously, however would not like to discuss it further. 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 Akanksha Kumar, DO - IM PGY-1 Visit type - Emergency Visit Emergency Visit: No - New Patient This patient is new to me today: No - Critical Care Critical Care patient: No <Sasha Vale - Last Filed: 11/10/17 20:16> Physical Exam: Vital Signs Temperature 99.6 F 11/10/17 14:00 Pulse Rate 86 11/10/17 05:29 Respiratory Rate 20 11/10/17 05:29 Blood Pressure 145/67 11/10/17 05:29 O2 Sat by Pulse Oximetry (%) 93 L 11/09/17 21:48 CBCD WBC 8.0 K/mm3 (4.0-10.0) 11/10/17 07:45 RBC 3.50 M/mm3 (4.00-5.60) L 11/10/17 07:45 Hgb 9.2 GM/dL (11.7-16.9) L 11/10/17 07:45 Hct 28.1 % (35.4-49) L 11/10/17 07:45 MCV 80.1 fl (80-96) 11/10/17 07:45 MCHC 32.7 g/dl (32.0-35.9) 11/10/17 07:45 RDW 16.4 % (11.9-15.9) H 11/10/17 07:45 Plt Count 227 K/MM3 (134-434) 11/10/17 07:45 MPV 7.9 fl (7.5-11.1) 11/10/17 07:45 CMP Sodium 137 mmol/L (136-145) 11/10/17 07:45 Potassium 4.4 mmol/L (3.5-5.1) 11/10/17 07:45 Chloride 105 mmol/L (98-107) 11/10/17 07:45 Carbon Dioxide 28 mmol/L (21-32) 11/10/17 07:45 Anion Gap 4 (8-16) L 11/10/17 07:45 BUN 18 mg/dL (7-18) D 11/10/17 07:45 Creatinine 0.7 mg/dL (0.7-1.3) D 11/10/17 07:45 Creat Clearance w eGFR > 60 (>60) 11/09/17 07:45 Random Glucose 111 mg/dL (74-106) H 11/10/17 07:45 Calcium 7.2 mg/dL (8.5-10.1) L 11/10/17 07:45 Total Bilirubin 0.7 mg/dL (0.2-1.0) 11/09/17 07:45 AST 47 U/L (15-37) H 11/09/17 07:45 ALT 42 U/L (12-78) 11/09/17 07:45 Alkaline Phosphatase 130 U/L (45-117) H 11/09/17 07:45 Total Protein 5.7 g/dl (6.4-8.2) L 11/09/17 07:45 Albumin 2.3 g/dl (3.4-5.0) L 11/09/17 07:45 CARDIAC ENZYMES Troponin I < 0.03 ng/ml (0.00-0.06) 11/08/17 14:30 Current Medications Generic Name Dose Route Start Last Admin Trade Name Freq PRN Reason Stop Dose Admin Acetaminophen 650 mg 11/09/17 21:07 Tylenol - PO Q4H PRN FEVER Atorvastatin Calcium 20 mg 11/09/17 22:00 11/09/17 22:24 Lipitor - PO 20 mg HS KIMBER Administration Citalopram Hydrobromide 10 mg 11/10/17 10:00 11/10/17 09:00 Celexa - PO 10 mg DAILY KIMBER Administration Heparin Sodium (Porcine) 5,000 unit 11/09/17 22:00 11/10/17 13:41 Heparin - SQ 5,000 unit TID KIMBER Administration Dextrose/Sodium Chloride 1,000 mls @ 75 mls/hr 11/09/17 19:15 11/09/17 22:23 D5-1/2ns - IV 75 mls/hr ASDIR KIMBER Administration Labetalol HCl 200 mg 11/10/17 22:00 Normodyne - PO BID KIMBER Oxycodone HCl 5 mg 11/10/17 10:24 Roxicodone - PO Q6H PRN PAIN LEVEL 6-10 Home Medications Medication Instructions Recorded Amlodipine Besylate [Norvasc -] 10 mg PO DAILY 11/08/17 Aspirin [Aspirin EC] 81 mg PO DAILY 11/08/17 Citalopram Hydrobromide [Celexa -] 20 mg PO DAILY 11/08/17 Labetalol HCl [Normodyne -] 300 mg PO BID 11/08/17 Oxycodone HCl/Acetaminophen 1 tab PO Q6H 11/08/17 [Percocet 5-325 mg Tablet] Simvastatin [Zocor -] 40 mg PO DAILY 11/08/17
[2017-11-10] MEDS: ATORVASTATIN CA 20 MG TABLET (FP) PO SCH (21:12)
[2017-11-10] MEDS: LABETALOL HCL 200 MG TABLET (FP) PO SCH (21:13)
[2017-11-11] MEDS: HEPARIN NA (PORCINE) 5,000 UNITS/ML 1ML VIAL SQ SCH ×2 (06:30→13:26)
[2017-11-11 08:07] LABS: SERUM IRON SATURATION 6 % (15-55); TOTAL IRON BINDING CAPACITY 198 ug/dL (250-450); UIBC 186 ug/dL (111-343)
[2017-11-11] MEDS: CITALOPRAM HYDROBROMIDE 20 MG TABLET (FP) PO SCH (09:38)
[2017-11-11] MEDS: LABETALOL HCL 200 MG TABLET (FP) PO SCH (09:38)
--- NOTE | 2017-11-11 09:51 | PN ---
Teaching Attending Note Name of Resident: Nikko Kumar ATTENDING PHYSICIAN STATEMENT I saw and evaluated the patient. I reviewed the resident's note and discussed the case with the resident. I agree with the resident's findings and plan as documented. SUBJECTIVE: OBJECTIVE: Vital Signs Temperature 98.7 F 11/11/17 06:00 Pulse Rate 82 11/11/17 06:00 Respiratory Rate 20 11/11/17 06:00 Blood Pressure 114/59 11/11/17 06:00 O2 Sat by Pulse Oximetry (%) 93 L 11/10/17 21:00 NAD . AAOx3 Cv; RRR, 3/6 Sm at LUSB and to a minimal extent RUSB with extension to carotid. 3/6 SM at apex with radiatio to axilla Lungs: R base crackles Ext: no edema , no erythema Abd: soft, slightly distended. mild discomfort in R inguinal area with no hernia felt ( reduced earlier by Dr. mock ) . L inguinal hernia filing the L hemiscrotum with bowel sounds heard in henia sac no skin changes over henia CBCD WBC 8.0 K/mm3 (4.0-10.0) 11/10/17 07:45 RBC 3.50 M/mm3 (4.00-5.60) L 11/10/17 07:45 Hgb 9.2 GM/dL (11.7-16.9) L 11/10/17 07:45 Hct 28.1 % (35.4-49) L 11/10/17 07:45 MCV 80.1 fl (80-96) 11/10/17 07:45 MCHC 32.7 g/dl (32.0-35.9) 11/10/17 07:45 RDW 16.4 % (11.9-15.9) H 11/10/17 07:45 Plt Count 227 K/MM3 (134-434) 11/10/17 07:45 MPV 7.9 fl (7.5-11.1) 11/10/17 07:45 CMP Sodium 137 mmol/L (136-145) 11/10/17 07:45 Potassium 4.4 mmol/L (3.5-5.1) 11/10/17 07:45 Chloride 105 mmol/L (98-107) 11/10/17 07:45 Carbon Dioxide 28 mmol/L (21-32) 11/10/17 07:45 Anion Gap 4 (8-16) L 11/10/17 07:45 BUN 18 mg/dL (7-18) D 11/10/17 07:45 Creatinine 0.7 mg/dL (0.7-1.3) D 11/10/17 07:45 Creat Clearance w eGFR > 60 (>60) 11/09/17 07:45 Random Glucose 111 mg/dL (74-106) H 11/10/17 07:45 Calcium 7.2 mg/dL (8.5-10.1) L 11/10/17 07:45 Total Bilirubin 0.7 mg/dL (0.2-1.0) 11/09/17 07:45 AST 47 U/L (15-37) H 11/09/17 07:45 ALT 42 U/L (12-78) 11/09/17 07:45 Alkaline Phosphatase 130 U/L (45-117) H 11/09/17 07:45 Total Protein 5.7 g/dl (6.4-8.2) L 11/09/17 07:45 Albumin 2.3 g/dl (3.4-5.0) L 11/09/17 07:45 CARDIAC ENZYMES Troponin I < 0.03 ng/ml (0.00-0.06) 11/08/17 14:30 Current Medications Generic Name Dose Route Start Last Admin Trade Name Freq PRN Reason Stop Dose Admin Acetaminophen 650 mg 11/09/17 21:07 Tylenol - PO Q4H PRN FEVER Atorvastatin Calcium 20 mg 11/09/17 22:00 11/10/17 21:12 Lipitor - PO 20 mg HS KIMBER Administration Citalopram Hydrobromide 10 mg 11/10/17 10:00 11/11/17 09:38 Celexa - PO 10 mg DAILY KIMBER Administration Docusate Sodium 100 mg 11/11/17 14:00 Colace - PO TID KIMBER Heparin Sodium (Porcine) 5,000 unit 11/09/17 22:00 11/11/17 06:30 Heparin - SQ 5,000 unit TID KIMBER Administration Dextrose/Sodium Chloride 1,000 mls @ 75 mls/hr 11/09/17 19:15 11/09/17 22:23 D5-1/2ns - IV 75 mls/hr ASDIR KIMBER Administration Labetalol HCl 200 mg 11/10/17 22:00 11/11/17 09:38 Normodyne - PO 200 mg BID KIMBER Administration Oxycodone HCl 5 mg 11/10/17 10:24 Roxicodone - PO Q6H PRN PAIN LEVEL 6-10 Home Medications Medication Instructions Recorded Amlodipine Besylate [Norvasc -] 10 mg PO DAILY 11/08/17 Aspirin [Aspirin EC] 81 mg PO DAILY 11/08/17 Citalopram Hydrobromide [Celexa -] 20 mg PO DAILY 11/08/17 Labetalol HCl [Normodyne -] 300 mg PO BID 11/08/17 Oxycodone HCl/Acetaminophen 1 tab PO Q6H 11/08/17 [Percocet 5-325 mg Tablet] Simvastatin [Zocor -] 40 mg PO DAILY 11/08/17 ASSESSMENT AND PLAN: 82 y/o man with h/o chronic back pain, HTN, L inguinal hernia, HLP and depression who presented with abd pain and distentin and was found to have SBO a tthe level of R inguinal hernia #POD #2 s/p open [facility] repair surgeon Dr. Mock, pain control - IVF ( switch to D5w ) # Echo with Mod-severe , and mild MR, TR. due to the urgency of the surgery no surgical intervention should be delayed for cardiac procedures. he is at high risk of nat-op cardiac complications given his - QTC 503. Avoid any QTC prolonging agents. d/w Dr. mock # Acute Hyponatremia improved # Liver masses on CT scan : explained to pt and family possibility of Mets. also lung lesion seen . they opted for no further w/u as inpt . even staging was declined. f/u as out PT # Prolonged QTC. 503. decrease celexa to 10 from 20 daily . can't stop abruptly; avoid any Qtc prolonging agents - No zofran # HTN: hold norvasc and labetalol. use IV meds if needed or po with sips after surgery DVT Px:
--- NOTE | 2017-11-11 10:49 | PN ---
Progress Note, Physician History of Present Illness: Right incarcerated inguinal hernia repair with mesh POD#2. Tolerating soft diet. Mild incisional discomfort improved, and denies chest pain or dyspnea. - Current Medication List Current Medications: Active Medications Acetaminophen (Tylenol -) 650 mg PO Q4H PRN PRN Reason: FEVER Atorvastatin Calcium (Lipitor -) 20 mg PO HS [facility] Last Admin: 11/10/17 21:12 Dose: 20 mg Citalopram Hydrobromide (Celexa -) 10 mg PO DAILY [facility] Last Admin: 11/11/17 09:38 Dose: 10 mg Docusate Sodium (Colace -) 100 mg PO TID [facility] Heparin Sodium (Porcine) (Heparin -) 5,000 unit SQ TID [facility] Last Admin: 11/11/17 06:30 Dose: 5,000 unit Dextrose/Sodium Chloride (D5-1/2ns -) 1,000 mls @ 75 mls/hr IV ASDIR [facility] Last Admin: 11/09/17 22:23 Dose: 75 mls/hr Labetalol HCl (Normodyne -) 200 mg PO BID [facility] Last Admin: 11/11/17 09:38 Dose: 200 mg Oxycodone HCl (Roxicodone -) 5 mg PO Q6H PRN PRN Reason: PAIN LEVEL 6-10 Last Admin: 11/11/17 10:40 Dose: 5 mg - Objective Vital Signs: Vital Signs Temperature 98.7 F 11/11/17 06:00 Pulse Rate 82 11/11/17 06:00 Respiratory Rate 20 11/11/17 06:00 Blood Pressure 114/59 11/11/17 06:00 O2 Sat by Pulse Oximetry (%) 93 L 11/10/17 21:00 Constitutional: Yes: No Distress, Calm Neck: Yes: Supple Cardiovascular: Yes: Regular Rate and Rhythm Respiratory: Yes: Regular, CTA Bilaterally Gastrointestinal: Yes: Normal Bowel Sounds, Soft Edema: No Labs: CBC, BMP 11/10/17 07:45 11/10/17 07:45 INR, PTT INR 1.16 (0.82-1.09) H 11/08/17 23:40 Problem List - Problems (1) HTN (hypertension) Code(s): I10 - ESSENTIAL (PRIMARY) HYPERTENSION Qualifiers: Hypertension type: essential hypertension Qualified Code(s): I10 - Essential (primary) hypertension (2) Hypercholesterolemia Code(s): E78.00 - PURE HYPERCHOLESTEROLEMIA, UNSPECIFIED (3) Inguinal hernia Code(s): K40.90 - UNIL INGUINAL HERNIA, W/O OBST OR GANGR, NOT SPCF RECUR Qualifiers: Laterality: unilateral (4) Right bundle branch block Code(s): I45.10 - UNSPECIFIED RIGHT BUNDLE-BRANCH BLOCK Assessment/Plan Echo: 11/09/2017 Normal biventricular size and fxn, mild-mod , mild MR, TR, pulm HTN 1. Right incarcerated inguinal hernia repair with mesh POD#2 stable CV-concepcion 2. Hypertension 3. Hypercholesterolemia 4. Right bundle branch block PLAN: 1. Continue Lipitor 20 qhs, resume ASA 81 qd once hemostasis achieved, continue labetolol 200 bid with uptitration to target as tolerated 2. DVT prophylaxis, analgesia as needed, encourage ambulation 3. Further cardiac work up can be done as outpatient with his solution maker, dc planning 4. Recheck QTc
--- NOTE | 2017-11-11 11:06 | PN ---
Progress Note (short form) - Note Progress Note: Attending Surgeon POD #2 No c/o; tolerating diet; moving bowels and passing flatue VSS AF abdo-soft; incision c/d/i/; left hernia persists IMP: doing well PLAN: LWC rendered; OOB; office f/u 7-10 days post op. Jez De La Paz MD FACS
--- NOTE | 2017-11-11 11:41 | EKG ---
Test Reason : Blood Pressure : / mmHG Vent. Rate : 080 BPM Atrial Rate : 080 BPM P-R Int : 140 ms QRS Dur : 142 ms QT Int : 438 ms P-R-T Axes : 024 -17 -07 degrees QTc Int : 505 ms SINUS RHYTHM WITH OCCASIONAL PREMATURE VENTRICULAR COMPLEXES RIGHT BUNDLE BRANCH BLOCK MODERATE VOLTAGE CRITERIA FOR LVH, MAY BE NORMAL VARIANT ABNORMAL ECG WHEN COMPARED WITH ECG OF 08-NOV-2017 16:06, PREMATURE VENTRICULAR COMPLEXES ARE NOW PRESENT INVERTED T WAVES HAVE REPLACED NONSPECIFIC T WAVE ABNORMALITY IN INFERIOR LEADS T WAVE INVERSION NO LONGER EVIDENT IN ANTERIOR LEADS Confirmed by YAMIL MATHEWS MD ([id number]) on 11/11/2017 11:41:22 AM Referred By: BRIAN PALMER Confirmed By:YAMIL MATHEWS MD
[2017-11-11] MEDS ORDERED: CEFUROXIME AXETIL 250 MG TABLET PO ONE (13:15)
[2017-11-11 13:57] VITALS: BP 130/63; PULSE 83; TEMP 99.3
[2017-11-11] MEDS ORDERED: DOCUSATE SODIUM 100 MG CAPSULE (FP) PO SCH (14:00)
--- NOTE | 2017-11-11 15:05 | DS ---
Physical Exam: SUBJECTIVE: Pt has no new complaints today. He reports passing gas and with one BM this morning. He also states he's been walking with physical therapy. Denies any nausea, vomiting. OBJECTIVE: Vital Signs Period Temp Pulse Resp BP Sys/Noble Pulse Ox Last 24 Hr 98.7 F-99.4 F 80-93 20-22 109-130/55-66 93 PHYSICAL EXAM GENERAL: NAD, awake, alert, and fully oriented HEENT: EOMI, RASHMI, NC/AT, moist mucosa LUNGS: CTA bilaterally, no wheezes, no crackles, no accessory muscle use. HEART: RRR, S1, S2 without murmur, rub or gallop. ABDOMEN: Soft, nontender, nondistended, normoactive bowel sounds, no guarding, RLQ incision closed with stables C/D/I, no hepatomegaly, L large inguinal hernia noted EXTREMITIES: 2+ DP pulses, warm, no edema. PSYCH: Normal mood, normal affect. SKIN: Warm, dry, no rashes, incision as above LABS Laboratory Results - last 24 hr 11/10/17 07:45 Iron 12 L TIBC 198 L Iron Saturation 6 L HOSPITAL COURSE: Date of Admission:11/08/17 Date of Discharge: 11/11/17 Pt was admitted on 11/08/17 for acute lower quadrant abdominal pain found to have a R incarcerated inguinal hernia. Pt's hernia was reduced manually and brought to the OR for open hernia reduction with mesh placement. Post-operatively, pt began to tolerate clear liquids without difficulty and advanced to soft diet which he continued to tolerate. Fortunately, pt began to have flatus and began passing normal character and quality bowel movements on POD 2. Finally, he walked about 100ft with walker assistance with physical therapy on his POD2. Pt and family would like for visiting nurse service for his chronic back pain and remaining rehabilitation. Due to his chronic back pain and using Percocet 5- 325mg as needed, he is being discharged with a prescription for Colace 100mg PO TID combat any constipation. Pt is being discharged in stable condition and has follow-up with Dr. De La Paz in 7-10 days. In addition, pt was found to have a UA with 3 WBC, no nitrites, no leukocyte esterase, and rare bacteria which cultured to be pansensitive pseudomonas. Pt denies any urinary complaints throughout admission. He has instructions to be discharged with Ceftin 250mg PO BID for the next 7 days. OF NOTE: Pt's liver was noted to have heterogenous masses which upon discussion he and family members did not want to undergo event staging. We recommended that these masses should be further investigated on an outpatient basis, but we respected the pt's decision to autonomy. Additional Imagin11/08/[address]: High-grade small bowel obstruction presumably complete with abrupt transition point within a large RIGHT inguinal hernia. Mauro large LEFT inguinal hernia containing nearly the entire descending and sigmoid colon with no evidence of obstruction Multiple indeterminant hepatic mass lesions, concerning for metastasis. Enlarged portacaval and peripancreatic lymph nodes also concerning for malignancy Small layering R pleural effusion Cardiomegaly, at least moderate coronary artery calcific atherosclerosis and aortic valve calcification Englarged prostate gland 11/09/17 Abdominal XR: Distended loops of small bowel predominantly in the R abdomen concerning for SBO 11/09/17 Echocardiogram: LV size, thickness and function are normal LA mildly dilated Mild MR, TR and valvular aortic stenosis Severe pulmonary hypertension Minutes to complete discharge: 40 Discharge Summary Reason For Visit: LIVER MASS Current Active Problems Bowel obstruction (Acute) HTN (hypertension) (Acute) Hypercholesterolemia (Acute) Inguinal hernia (Acute) Liver mass (Acute) Right bundle branch block (Acute) Small bowel obstruction (Acute) Condition: Stable - Instructions Diet, Activity, Other Instructions: You were seen here for your abdominal pain that was attributed to a bowel obstruction from your hernia. You underwent surgery to help fix your hernia. Please do not lift weight greater than 5-10 lbs for the next week and then weight greater than 20-30lbs for the next four weeks as your surgical incision heals. MEDICATIONS: Please continue your medications as you have been You were also found to have a urinary tract infection; please take Ceftin 250mg TWICE per day by Mouth for the next 7 days. --This prescription has been sent to your pharmacy You were also given a stool softener to take 3 times per day called Colace 100mg Please only take Celexa 10mg ONCE per day by mouth for your anxiety; we decreased your dose due to an EKG abnormality seen FOLLOW-UPs: Please follow-up with Dr. De La Paz his office within the next 7-10 days to evaluate your surgical wound Please follow-up with Dr. Feldman ([phone]) regarding what happened here today --We recommend you also follow-up with your primary care provider for you liver abnormality found on your admission --You will need an EKG as well to see if your long Qtc interval has decreased in length Referrals: Jez De La Paz MD [Staff Physician] - Vinicius Feldman MD [Primary Care Provider] - Disposition: VNS/HOME HEALTH CARE - Home Medications Comprehensive Discharge Medication List: Ambulatory Orders Amlodipine Besylate [Norvasc -] 10 mg PO DAILY 11/08/17 Aspirin [Aspirin EC] 81 mg PO DAILY 11/08/17 Labetalol HCl [Normodyne -] 300 mg PO BID 11/08/17 Oxycodone HCl/Acetaminophen [Percocet 5-325 mg Tablet] 1 tab PO Q6H 11/08/17 Simvastatin [Zocor -] 40 mg PO DAILY 11/08/17 Citalopram Hydrobromide [Celexa -] 10 mg PO DAILY #30 tablet 11/11/17 Docusate Sodium [Colace -] 100 mg PO TID #90 capsule 11/11/17 This patient is new to me today: No Emergency Visit: No Critical Care patient: No - Discharge Referral Referred to [facility] No
--- NOTE | 2017-11-11 15:50 | PATH ---
Surgical Pathology Report Patient Name: [facility]. Rec. #: [id number] /Age/Gender: 1935 (Age: 82) / M Account: [id number] Location: [address] [place] [address]/[facility] Taken: 11/09/2017 Received: 11/10/2017 Reported: 11/11/2017 Physicians: MD Lucia Malcolm M.D. Specimen(s) Received TISSUE HERNIA Clinical History Incarcerated hernia Final Diagnosis INGUINAL HERNIA SAC TISSUE, HERNIA REPAIR:MESOTHELIAL LINED FIBROMEMBRANOUS TO FIBROADIPOSE TISSUE CONSISTENT WITH HERNIA SAC AND CONTENTS. Electronically Signed Ela Chung M.D. Gross Description Received in formalin labeled "hernia sac tissue," is a 10.0 x 8.0 x 1.0 cm aggregate of multiple portions of scott-yates fibromembranous tissue with attached fat, consistent with a hernia sac. Land Manager sections are submitted in one cassette. /11/10/2017 saudi11/10/2017
--- NOTE | 2017-11-12 08:37 | OP ---
DATE OF OPERATION: 11/09/2017 PREOPERATIVE DIAGNOSIS: Incarcerated right inguinal hernia. POSTOPERATIVE DIAGNOSIS: Incarcerated right inguinal hernia. PROCEDURE: Repair of incarcerated right inguinal hernia with Pro Benzol Still Operator mesh. SURGEON: Jez De La Paz MD WATER METER READER: Eri Pritchard PA-C ANESTHESIA: General. OPERATIVE FINDINGS: There was an incarcerated right inguinal hernia containing viable small bowel. The sac was edematous. The floor was markedly attenuated. The rest of the findings were unremarkable. PROCEDURE: The patient was placed on the operating room table in the supine position and after the induction of general anesthesia and placement of a Aguilar catheter the abdomen was prepped with ChloraPrep and draped in sterile fashion. A timeout was taken and a right groin incision was made with a scalpel and taken down through skin and subcutaneous tissue and Naty fascia. The previously noted findings were observed. The hernia sac was bluntly dissected up to the internal ring and the cord structures identified and a Johana drain placed around them for retraction and identification purposes. The sac was opened and the previously noted findings were observed. Redundant sac was excised using electrocautery and sent for pathological examination and then high ligation was carried out with a 0 Vicryl pursestring suture. The floor of the inguinal canal and the direct component of the hernia were then repaired by anchoring a piece of Pro Benzol Still Operator mesh to the pubic tubercle, shelving edge and conjoint tendon, respectively, with interrupted 2-0 Prolene. A keyhole was created for the cord structures and the tails of the mesh brought above the level of the internal ring and anchored there with interrupted 2-0 Prolene. Hemostasis was checked for and noted to be good and then the wound was copiously irrigated with sterile saline. Hemostasis was again verified and then what could be best identified as the external oblique fascia because it was markedly attenuated was closed using continuous 2-0 Vicryl recreating the external ring. Naty fascia was reapproximated with interrupted 2-0 Vicryl, the deep dermis with interrupted 3-0 Vicryl and the skin edges with surgical josefina. Dry sterile dressings were placed, the procedure terminated at this point and the patient aroused from general anesthesia and transferred to the postanesthesia care unit in stable condition, awake and alert. ESTIMATED BLOOD LOSS: 20 mL. REPLACEMENT: Crystalloid. DRAINS: None. SPECIMEN: Hernia sac to Pathology. I, Jez De La Paz, was physically present in the operating room from the time the patient was placed on the operating room table until he was transferred to the postanesthesia care unit in my accompaniment. MD ROX Snow/[id number] MTDD
== END 2017-11-11 17:30 | disposition home health service (06) | DRG 351 ==
LOC: FER 13:31 → J6S 20:46
PROVIDERS: ADMIT Internal Medicine; ATTEND Internal Medicine
PROC: 0YU50JZ Supplement Right Inguinal Region with Synthetic Substitute, Open Approach (ICD-10-PCS; principal; 2017-11-09 10:00)
DX: K40.30 Unilateral inguinal hernia, with obstruction, without gangrene, not specified as recurrent (principal); E87.1 Hypo-osmolality and hyponatremia; B37.0 Candidal stomatitis; J90 Pleural effusion, not elsewhere classified; N39.0 Urinary tract infection, site not specified; I10 Essential (primary) hypertension; K75.9 Inflammatory liver disease, unspecified; K40.90 Unilateral inguinal hernia, without obstruction or gangrene, not specified as recurrent; M54.9 Dorsalgia, unspecified; E78.5 Hyperlipidemia, unspecified; F41.8 Other specified anxiety disorders; K76.9 Liver disease, unspecified; R59.0 Localized enlarged lymph nodes; D64.9 Anemia, unspecified; R01.1 Cardiac murmur, unspecified; E87.5 Hyperkalemia; M19.90 Unspecified osteoarthritis, unspecified site; I45.10 Unspecified right bundle-branch block; R91.1 Solitary pulmonary nodule; I45.81 Long QT syndrome; R16.0 Hepatomegaly, not elsewhere classified; I27.20 Pulmonary hypertension, unspecified; I08.3 Combined rheumatic disorders of mitral, aortic and tricuspid valves; N40.0 Benign prostatic hyperplasia without lower urinary tract symptoms; Z87.891 Personal history of nicotine dependence
CPT/HCPCS: 36415; 71045-TC-FY; 74019-TC-FY; 74177-TC; 80048; 80053; 81003; 81015; 82436; 82728; 83540; 83550; 83605; 83690; 83735; 84100; 84133; 84295; 84300; 84484; 85025; 85027; 85610; 85730; 86850; 86900; 86901; 87040; 87086; 87186; 88304-TC; 93005; 93010; 93306-TC; 94760; 97116-GP; 97161-GP; 99284-25; J1644; J7030